=== PATIENT | female | born 1975 | race Hispanic/Latino ===

== ENCOUNTER 2018-02-17 18:45 | Emergency (ER) | payer OTHER ==
[2018-02-17 19:57] LABS: Absolute Lymphocytes (CBC) 2.6 K/uL (0.7-4.9); Absolute Monocytes 0.6 K/uL (0.1-1.3); Absolute Neutrophil 5.5 K/uL (1.8-8.0); Basophils % 0.5 % (0-1.3); Eosinophils % 0.7 % (0-4.4); Hematocrit 40.3 % (36.0-45.0); Lymphocytes % 29.3 % (15.3-44.8); MCH 28.8 pg (27.0-35.0); MCV 84.2 fL (80-100); MPV 8.5 fL (7.6-11.3); RBC Red Blood Cell Count 4.78 M/uL (3.86-4.86)
[2018-02-17 20:05] LABS: Urine Blood NEGATIVE (NEG); Urine Glucose NEGATIVE (NEG); Urine Protein NEGATIVE (NEG); Urine Specific Gravity <1.005 (1.005-1.030)
[2018-02-17 20:12] LABS: Protime INR 0.96
--- NOTE | 2018-02-17 20:16 | RAD REPORT ---
EXAM DESCRIPTION: RAD - Chest Single View - 02/17/2018 8:09 pm CLINICAL HISTORY: Shortness of breath. COMPARISON: None. FINDINGS: Portable technique limits examination quality. The lungs are grossly clear. The heart is normal in size. No displaced fractures. IMPRESSION: No acute intrathoracic process suspected.
[2018-02-17 20:29] LABS: CKMB Creatine Kinase MB 0.8 ng/ml (0.3-4.0); Potassium 3.2 mEq/L (3.6-5.0)
[2018-02-17 20:35] LABS: Albumin 4.2 g/dL (3.2-5.5); Bilirubin Direct 0.1 mg/dL (0-0.2); Bilirubin Total 0.7 mg/dL (0.3-1.2); Magnesium 2.3 mg/dL (1.8-2.5); Protein, Total 7.6 g/dL (6.0-8.3)
--- NOTE | 2018-02-17 22:28 | EDPHYS ---
Physician Documentation [facility] Name: Jody Alarcon Age: 42 yrs Sex: Female : 1975 Arrival Date: 02/17/2018 Time: 18:45 Bed 28 Private MD: ED Physician Bernabe East HPI: 02/17 22:53 This 42 yrs old Female presents to ER via Ambulatory with complaints of pm1 Shortness Of Breath, Numbness Of Arm, Dizziness. 22:53 The patient has shortness of breath at rest. Onset: The symptoms/episode began/occurred pm1 yesterday. Duration: The symptoms are continuous, and are unchanged since they started. The patient's shortness of breath is aggravated by nothing, is alleviated by nothing. Associated signs and symptoms: Pertinent positives: chest pain, Left arm numbness, Pertinent negatives: non-productive cough, productive cough, diaphoresis, fever. Severity of symptoms: in the emergency department the symptoms are worse. The patient has been recently seen by a physician: patient was taken on her antidepressant/anxiety medications about 1 month ago. 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 - Social history:: Smoking status: Patient/guardian denies using tobacco. ROS: 22:53 Constitutional: Negative for fever, chills, and weight loss, Eyes: Negative for injury, pm1 pain, redness, and discharge, ENT: Negative for injury, pain, and discharge, Neck: Negative for injury, pain, and swelling. 22:53 Abdomen/GI: Negative for abdominal pain, nausea, vomiting, diarrhea, and constipation, Back: Negative for injury and pain, : Negative for injury, bleeding, discharge, and swelling, MS/Extremity: Negative for injury and deformity, Skin: Negative for injury, rash, and discoloration. 22:53 Cardiovascular: Positive for chest pain, Negative for edema, orthopnea, palpitations. 22:53 Respiratory: Positive for shortness of breath, Negative for cough, sputum production, wheezing. 22:53 Neuro: Positive for numbness, of the left arm, Negative for dizziness, headache, syncope, near syncope. Exam: 22:53 Constitutional: This is a well developed, well nourished patient who is awake, alert, pm1 and in no acute distress. Head/Face: Normocephalic, atraumatic. Eyes: Pupils equal round and reactive to light, extra-ocular motions intact. Lids and lashes normal. Conjunctiva and sclera are non-icteric and not injected. Cornea within normal limits. Periorbital areas with no swelling, redness, or edema. ENT: Nares patent. No nasal discharge, no septal abnormalities noted. Tympanic membranes are normal and external auditory canals are clear. Oropharynx with no redness, swelling, or masses, exudates, or evidence of obstruction, uvula midline. Mucous membranes moist. Neck: Trachea midline, no thyromegaly or masses palpated, and no cervical lymphadenopathy. Supple, full range of motion without nuchal rigidity, or vertebral point tenderness. No Meningismus. 22:53 Cardiovascular: Regular rate and rhythm with a normal S1 and S2. No gallops, murmurs, or rubs. Normal PMI, no JVD. No pulse deficits. Respiratory: Lungs have equal breath sounds bilaterally, clear to auscultation and percussion. No rales, rhonchi or wheezes noted. No increased work of breathing, no retractions or nasal flaring. Abdomen/GI: Soft, non-tender, with normal bowel sounds. No distension or tympany. No guarding or rebound. No evidence of tenderness throughout. Back: No spinal tenderness. No costovertebral tenderness. Full range of motion. Skin: Warm, dry with normal turgor. Normal color with no rashes, no lesions, and no evidence of cellulitis. MS/ Extremity: Pulses equal, no cyanosis. Neurovascular intact. Full, normal range of motion. Neuro: Awake and alert, GCS 15, oriented to person, place, time, and situation. Cranial nerves II-XII grossly intact. Motor strength 5/5 in all extremities. Sensory grossly intact. Cerebellar exam normal. Normal gait. 22:53 Chest/axilla: Inspection: normal, Palpation: tenderness, of the mid-sternal area, that totally reproduces the patient's complaints. Vital Signs: 18:54 BP 149 / 97; Pulse 102; Resp 22; Temp 98.2(TE); Pulse Ox 100% ; Weight 78.02 kg; Height lk1 5 ft. 4 in. (162.56 cm) (R); Pain 0/10; 19:30 BP 134 / 93; Pulse 118; Resp 18; Pulse Ox 100% on R/A; tl3 20:20 BP 134 / 86; Pulse 90; Resp 18; Pulse Ox 98% on R/A; tl3 21:26 BP 136 / 87; Pulse 96; Resp 16; Pulse Ox 100% on R/A; tl3 22:21 BP 124 / 83; Pulse 73; Resp 18; Pulse Ox 98% on R/A; tl3 18:54 Body Mass Index 29.52 (78.02 kg, 162.56 cm) lk1 MDM: 19:28 Patient medically screened. pm1 22:27 Data reviewed: vital signs. Data interpreted: Pulse oximetry: on room air is 98 %. pm1 Interpretation: normal. Counseling: I had a detailed discussion with the patient and/or guardian regarding: the historical points, exam findings, and any diagnostic results supporting the discharge/admit diagnosis, lab results, radiology results, the need for outpatient follow up, to return to the emergency department if symptoms worsen or persist or if there are any questions or concerns that arise at home. 02/17 18:51 Order name: Basic Metabolic Panel; Complete Time: 21:46 tw4 02/17 18:51 Order name: BNP; Complete Time: 20:25 02/17 18:51 Order name: CBC with Diff; Complete Time: 20:25 4 02/17 18:51 Order name: Ckmb; Complete Time: 21:46 tw4 02/17 18:51 Order name: CPK; Complete Time: 21:46 tw4 02/17 18:51 Order name: LFT's; Complete Time: 21:46 4 02/17 18:51 Order name: Magnesium; Complete Time: 21:46 tw4 02/17 18:51 Order name: PT-INR; Complete Time: 20:25 tw4 02/17 18:51 Order name: Ptt, Activated; Complete Time: 20:25 tw4 02/17 18:51 Order name: Troponin (emerg Dept Use Only); Complete Time: 20:25 tw4 02/17 19:43 Order name: Urine Dipstick--Ancillary (enter results) em1 02/17 19:43 Order name: Urine Dipstick-Ancillary; Complete Time: 20:25 EDMS 02/17 19:52 Order name: D-Dimer pm1 02/17 18:51 Order name: XRAY Chest (1 view); Complete Time: 20:25 tw4 02/17 18:51 Order name: EKG; Complete Time: 18:51 tw4 02/17 18:51 Order name: Cardiac monitoring; Complete Time: 19:46 tw4 02/17 18:51 Order name: EKG - Nurse/Tech; Complete Time: 19:46 tw4 02/17 18:51 Order name: IV Saline Lock; Complete Time: 19:46 tw4 02/17 18:51 Order name: Labs collected and sent; Complete Time: 19:46 tw4 02/17 18:51 Order name: O2 Per Protocol; Complete Time: 19:46 tw4 02/17 18:51 Order name: O2 Sat Monitoring; Complete Time: 19:46 tw4 02/17 18:51 Order name: Urine Dipstick-Ancillary (obtain specimen); Complete Time: 19:42 tw4 02/17 19:58 Order name: D-Dimer; Complete Time: 20:25 EDMS Administered Medications: 22:30 Drug: Potassium Effervescent Tablet 50 mEq Route: PO; tl3 22:52 Follow up: Response: Medication administered at discharge. pm1 Disposition: 02/18 01:27 Co-signature as Attending Physician, Bernabe East MD. [email or web address] Disposition: 02/17/18 22:27 Discharged to Home. Impression: Chest pain, unspecified. - Condition is Stable. - Discharge Instructions: Nonspecific Chest Pain. - Medication Reconciliation Form, Thank You Letter form. - Follow up: Emergency Department; When: As needed; Reason: Worsening of condition. Follow up: Private Physician; When: 2 - 3 days; Reason: Recheck today's complaints, Continuance of care, Re-evaluation by your physician. - Problem is new. - Symptoms have improved. Signatures: Dispatcher [employer] EDMS Bernabe East MD MD pkl Milena Ayers, RN RN lk1 Zane Meyer, STRAP CUTTING MACHINE OPERATOR STRAP CUTTING MACHINE OPERATOR pm1 Percy Klein MD MD tw4 Dana Brenner, RN RN tl3 Corrections: (The following items were deleted from the chart) 02/17 19:57 19:52 D-Dimer ordered. EDMS EDMS
--- NOTE | 2018-02-17 22:28 | ER ---
Nurse's Notes [facility] Name: Jody Alarcon Age: 42 yrs Sex: Female : 1975 Arrival Date: 02/17/2018 Time: 18:45 Bed 28 Private MD: Diagnosis: Chest pain, unspecified Presentation: 02/17 18:51 Presenting complaint: Patient states: "I have not felt good for three days. Today when lk1 I was driving home I felt dizzy and short of breath and my left arm tingled. I think it is just from stress.". Transition of care: patient was not received from another setting of care. Onset of symptoms was February 15, 2018. Care prior to arrival: None. 18:51 Method Of Arrival: Ambulatory lk1 18:51 Acuity: WILBERTO 3 lk1 Triage Assessment: 18:53 General: Appears uncomfortable, Behavior is appropriate for age, anxious. Pain: Denies lk1 pain. Neuro: Level of Consciousness is awake, alert, obeys commands, Oriented to person, place, time, situation, Moves all extremities. Full function Gait is steady, Speech is normal, Facial symmetry appears normal. Neuro: Reports paresthesias in left arm. Cardiovascular: Capillary refill is brisk Patient's skin is warm and dry. Respiratory: Airway is patent Respiratory effort is even, unlabored, Respiratory pattern is symmetrical, tachypnea. 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 - Social history:: Smoking status: Patient/guardian denies using tobacco. Screenin:20 Abuse screen: Denies threats or abuse. Nutritional screening: No deficits noted. tl3 Tuberculosis screening: No symptoms or risk factors identified. Fall Risk None identified. Assessment: 19:30 General: Appears uncomfortable, well groomed, well developed, well nourished, Behavior tl3 is calm, cooperative, appropriate for age. Pain: Complains of pain in left arm Pain does not radiate. Pain began suddenly. Neuro: Level of Consciousness is awake, alert, obeys commands, Oriented to person, place, time, situation, Appropriate for age. Cardiovascular: Heart tones S1 S2 present Capillary refill < 3 seconds in bilateral fingers. Respiratory: Reports shortness of breath at rest Airway is patent Trachea midline Breath sounds are clear bilaterally. GI: No signs and/or symptoms were reported involving the gastrointestinal system. : No signs and/or symptoms were reported regarding the genitourinary system. EENT: No signs and/or symptoms were reported regarding the EENT system. 20:20 Reassessment: Patient appears in no apparent distress at this time. No changes from tl3 previously documented assessment. Patient and/or family updated on plan of care and expected duration. Pain level reassessed. Patient is alert, oriented x 3, equal unlabored respirations, skin warm/dry/pink. at bedside. 21:27 Reassessment: Patient appears in no apparent distress at this time. No changes from tl3 previously documented assessment. Patient and/or family updated on plan of care and expected duration. Pain level reassessed. Patient is alert, oriented x 3, equal unlabored respirations, skin warm/dry/pink. no needs at this time. 22:21 Reassessment: Patient appears in no apparent distress at this time. No changes from tl3 previously documented assessment. Patient and/or family updated on plan of care and expected duration. Pain level reassessed. Patient is alert, oriented x 3, equal unlabored respirations, skin warm/dry/pink. pt waiting for disposition. Vital Signs: 18:54 BP 149 / 97; Pulse 102; Resp 22; Temp 98.2(TE); Pulse Ox 100% ; Weight 78.02 kg; Height lk1 5 ft. 4 in. (162.56 cm) (R); Pain 0/10; 19:30 BP 134 / 93; Pulse 118; Resp 18; Pulse Ox 100% on R/A; tl3 20:20 BP 134 / 86; Pulse 90; Resp 18; Pulse Ox 98% on R/A; tl3 21:26 BP 136 / 87; Pulse 96; Resp 16; Pulse Ox 100% on R/A; tl3 22:21 BP 124 / 83; Pulse 73; Resp 18; Pulse Ox 98% on R/A; tl3 18:54 Body Mass Index 29.52 (78.02 kg, 162.56 cm) lk1 ED Course: 18:45 Patient arrived in ED. as 18:52 Triage completed. lk1 18:55 Arm band placed on right wrist. lk1 19:26 Dana Brenner RN is Primary Nurse. tl3 19:28 Zane Meyer NP is PHCP. pm1 19:28 Bernabe East MD is Attending Physician. pm1 19:45 Initial lab(s) drawn, by me, sent to lab. Inserted saline lock: 20 gauge in left dh3 antecubital area, using aseptic technique. Blood collected. 20:08 X-ray completed. Portable x-ray completed in exam room. Patient tolerated procedure kc2 well. 20:09 XRAY Chest (1 view) In Process Unspecified. EDMS 20:19 D-Dimer Sent. tl3 20:19 Urine Dipstick--Ancillary (enter results) Sent. tl3 20:20 No apparent distress. Resting quietly. Awaiting lab results. tl3 20:20 Patient has correct armband on for positive identification. Placed in gown. Bed in low tl3 position. Call light in reach. Side rails up X 1. Adult w/ patient. radiation monitor on. Pulse ox on. NIBP on. Door closed. Lights dimmed. Warm blanket given. 20:20 No provider procedures requiring assistance completed. Patient maintains SpO2 tl3 saturation greater than 95% on room air. 22:58 IV discontinued, intact, bleeding controlled, No redness/swelling at site. Pressure tl3 dressing applied. Administered Medications: 22:30 Drug: Potassium Effervescent Tablet 50 mEq Route: PO; tl3 22:52 Follow up: Response: Medication administered at discharge. pm1 Outcome: 22:27 Discharge ordered by . pm1 22:55 Patient left the ED. tl3 22:58 Discharged to home ambulatory. tl3 22:58 Condition: good 22:58 Discharge instructions given to patient, Instructed on discharge instructions, follow up and referral plans. Demonstrated understanding of instructions, follow-up care. Signatures: Dispatcher [employer] Mya Sykes Leah, RN RN lk1 Zane Meyer NP LYE PEEL OPERATOR pm1 Joan Iqbal 2 Rosalee Quick [facility] Dana Brenner, DEBBY RN tl3
[2018-02-17] MEDS ORDERED: POTASSIUM 25 MEQ EFFERV TAB ONE (22:47)
--- NOTE | 2018-02-18 06:07 | EKG ---
Test Date: 2018-02-17 Test Time: 18:55:39 Metallurgical Or Materials Technician: [place] MEASUREMENT RESULTS: Intervals: Rate: 94 OR: 122 QRSD: 82 QT: 350 QTc: 437 [place]: P: 80 OR: 122 QRS: 57 T: 27 INTERPRETIVE STATEMENTS: Normal sinus rhythm Normal ECG No previous ECG available for comparison Electronically Signed On 02-18-18 06:06:24 CDT by Kalyan Pierre
== END 2018-02-17 22:55 | disposition home or self-care (01) ==
LOC: ER 18:45
DX: R07.9 Chest pain, unspecified (principal); Z88.8 Allergy status to other drugs, medicaments and biological substances; Z91.040 Latex allergy status
CPT/HCPCS: 36415; 71045; 80048; 80076; 81003; 82550; 82553; 83735; 83880; 84484; 85025; 85379; 85610; 85730; 93005; 99285

== ENCOUNTER 2019-07-19 13:52 | Emergency (ER) | payer BC ==
--- OUTSIDE RECORDS SUMMARY | 2019-07-19 13:55 | XMS REPORT | Continuity of Care Document ---
:1975 Author Organization [facility] Care Team Providers Name Role Phone Tyron Marshall MD Unavailable Unavailable Insurance Providers Payer name Policy type / Coverage type Policy ID Covered constitution party ID Policy Silva [employer] Encounters Encounter Performer Location Date Office Visit Tyron Marshall MD [facility] Sep 28, 2013 Allergies, Adverse Reactions, Alerts Type Substance Reaction Status Environmental allergy LATEX Active Drug allergy IODINE Active Drug allergy BETADINE Active Problems Problem Effective Dates Problem Status LOSS OF WEIGHT May 01, 2012 Active ANXIETY May 01, 2012 Active BACK STRAIN Active HIP PAIN, RIGHT Active LABRAL TEAR, RIGHT HIP Active HIP IMPINGEMENT, RIGHT Active INTERNAL DERANGEMENT, RIGHT HIP Active RT HIP ARTHROSCOPY -SURGICAL WITH LABRAL REPAIR Sep 15, 2013 Active Medications Medication Instructions Start Date Status CELEXA TABS per other M.D. May 01, 2012 Inactive CONZIP 100MG 1 tab po qd May 01, 2012 Inactive LORZONE 375 MG TABS 1 tab po QID May 01, 2012 Inactive MEDROL 4 MG TABS 1 DOSEPAK - take as directed May 01, 2012 Inactive VICODIN 5-500 MG TABS 1 PO q 4-6 hours prn pain May 01, 2012 Inactive PHENTERMINE HCL TABS per other M.D. May 01, 2012 Inactive ADÁN TABS Aug 27, 2013 Active TRAMADOL HCL 50 MG TABS 1-2 TAB Q 6-8 HRS PRN PAIN Sep 18, 2013 Active WHEEL CHAIR With bilateral leg lifts Sep 25, 2013 Active ULTRACET 37.5-325 MG TABS 1 PO q 6-8 hours prn pain Aug 14, 2013 Inactive Vital Signs Date Description Test Result May 01, 2012 weight E&M - 3141-9 WEIGHT 160 lb May 01, 2012 blood pressure, systolic - 8480-6 BP SYSTOLIC 134 mm Hg May 01, 2012 blood pressure, diastolic - 8462-4 BP DIASTOLIC 80 mm Hg May 01, 2012 height E&M - 8302-2 HEIGHT 64 in May 01, 2012 pulse rate E&M - 8867-4 PULSE RATE 102 /min
--- OUTSIDE RECORDS SUMMARY | 2019-07-19 13:55 | XMS REPORT | Continuity of Care Document ---
:1975 Author Organization [facility] Care Team Providers Name Role Phone Tyron Marshall MD Unavailable Unavailable Insurance Providers Payer name Policy type / Coverage type Policy ID Covered alliance party ID Policy Silva [employer] Encounters Encounter Performer Location Date Office Visit Tyron Marshall MD [email or web address] Office Dec 23, 2013 Allergies, Adverse Reactions, Alerts Type Substance [...] Inactive ADÁN TABS Aug 27, 2013 Active ULTRACET 37.5-325 MG TABS 1 PO q 6-8 hours prn pain Aug 14, 2013 Inactive NEUROPATHIC PAIN KETAMINE 10%,NIFEDIPINE Oct 22, 2013 Active 2%,PENTOXIFYLLINE 5%,GABAPENTIN 6%,CLONIDINE 0.2%,CARBAMAZEPINE 2%,BUPIVACAINE 2%. APPLY 2 GRAMS TO THE AFFECTED AREA FOUR TIMES DAILY NEURONTIN 300 MG CAPS 1 PO QHS for 5 days, then BID for 5 Oct 22, 2013 Inactive days, then TID NEURONTIN 100 MG CAPS 1 PO QHS for 5 days, then BID for 5 Oct 22, 2013 Inactive days, then TID WHEEL CHAIR With bilateral leg lifts Sep 25, 2013 Inactive TRAMADOL HCL 50 MG TABS 1-2 TAB Q 6-8 HRS PRN PAIN Sep 18, 2013 Inactive ZORVOLEX 35MG 1 po TID Dec 23, 2013 Active Vital Signs Date Description Test Result May [...]
--- OUTSIDE RECORDS SUMMARY | 2019-07-19 13:55 | XMS REPORT | Continuity of Care Document ---
:1975 Author Organization [id number] Care Team Providers Name Role Phone [employer] Unavailable Unavailable Problems Problem Status Onset Classification Date Comments Source Date Reported S76.011A - Active 09/07/20 OPID "STRAIN OF 15 [facility] MUSCLE, FASCIA AND RIGHT HIP Active 11/18/19 [facility] LABRUM TEAR 15 [place] PAIN Active 11/18/19 SMR 15 [facility] [place] RT HIP Active 09/15/20 Condition 12/23/2013 [place] ARTHROSCOPY 13 [facility] -SURGICAL WITH LABRAL REPAIR Altered bowel Active 09/25/20 Problem 09/18/2015 Data migrated OPID function 12 from [facility] (finding) Centricity on [facility] 04/16/15. [place] Constipation Active 09/25/20 Problem 09/18/2015 Data migrated OPID (disorder) 12 from [facility] on [facility] 04/16/15. [place] Left lower Active 09/25/20 Problem 09/18/2015 Data migrated OPID quadrant pain 12 from [facility] (finding) Centricity on [facility] 04/16/15. [place] Rectal pain Active 09/25/20 Problem 09/18/2015 Data migrated OPID (finding) 12 from [facility] Centricity on [facility] 04/16/15. [place] Right lower Active 09/25/20 Problem 09/18/2015 Data migrated OPID quadrant pain 12 from [facility] (finding) Centricity on [facility] 04/16/15. [place] Cyst of ovary Active 09/10/20 Problem 09/18/2015 Data migrated Surgical (disorder) 12 from [facility] Centricity on [facility] 04/16/15. [place], OPID [facility] [place] Irregular Active 08/19/20 Problem 09/18/2015 Data migrated OPID periods 12 from [facility] (finding) Centricity on [facility] 04/16/15. Natanael Gant Pain in pelvis Active 08/19/20 Problem 09/18/2015 Data migrated OPID (finding) 12 from [facility], Centricity on [facility] 04/16/15. Natanael Gant LOSS OF WEIGHT Active 05/01/20 Condition 12/23/2013 [facility] ANXIETY Active 05/01/20 Condition 12/23/2013 [place] [facility] BACK STRAIN Active Condition 12/23/2013 [facility] HIP PAIN, RIGHT Active Condition 12/23/2013 [facility] LABRAL TEAR, Active Condition 12/23/2013 [place] RIGHT HIP [facility] HIP Active Condition 12/23/2013 [facility] IMPINGEMENT, [facility] RIGHT INTERNAL Active Condition 12/23/2013 [facility] DERANGEMENT, [facility] RIGHT HIP Depressive Problem 03/03/2015 Surgical disorder Specialty (disorder) [facility] Hip pain Problem 03/03/2015 Surgical (finding) Specialty [facility] Medications Medication Details Route Status Patient Ordering Order Source Instructions Provider Date Dilaudid 0.5 mg=0.25 Inactive Vini 03/01/ Surgical mL, GRAB JACK WORKER 2015 Specialty Injection, [facility] IV Push, of [place] q10min PRN [place] for pain severe (7-10), first dose 03/01/15 17:03:00 CDT Demerol HCl 12.5 mg=0.25 Inactive Vini 03/01/ Surgical mL, GRAB JACK WORKER 2015 Specialty Injection, [facility] IV Push, of [place] Once PRN for [place] shivers, first dose 03/01/15 17:03:00 CDT Xopenex 0.63 mg/3 0.63 mg=3 Inactive Vini 03/01/ Surgical mL inhalation mL, Soln, GRAB JACK WORKER 2015 Specialty solution NEB, Once Hospital PRN for of [place] wheezing, [place] first dose 03/01/15 17:03:00 CDT ondansetron 4 mg=2 mL, Inactive Vini 03/01/ Surgical Injection, GRAB JACK WORKER 2015 Specialty IV Push, Hospital q15min PRN [place] for [place] nausea/vomit ing, order duration: 2 doses, first dose 03/01/15 17:03:00 CDT, stop date Limited # of times promethazine 12.5 mg=0.5 Inactive Vini 03/01/ Surgical mL, GRAB JACK WORKER 2015 Specialty Injection, Hospital IM, Once PRN of [place] for severe [place] nausea, first dose 03/01/15 17:03:00 CDT Saline Lock Flush 10 mL, Soln, Inactive Vini 03/01/ Surgical IV Push, As GRAB JACK WORKER 2015 Specialty Indicated Hospital PRN for of [place] flush, first [place] dose 03/01/15 17:03:00 CDT LR 1,000 mL 1,000 mL, Inactive Vini 03/01/ Surgical IV, 75 GRAB JACK WORKER 2015 Specialty mL/hr, start Hospital date of [place] 03/01/15 [place] 17:03:00 CDT Lactated Ringers IV, start Inactive Vini 03/01/ Surgical Injection date GRAB JACK WORKER 2015 Specialty 03/01/15 Hospital 16:53:00 of [place] CDT, stop [place] date 03/01/15 16:53:00 CDT ketorolac 30 mg=1 mL, Inactive Vini 03/01/ Surgical Injection, GR[employer] JACK WORKER 2015 Specialty IV, Once, Hospital first dose of [place] 03/01/15 [place] 16:34:00 CDT, stop date 03/01/15 16:34:00 CDT neostigmine 2.5 mg=2.5 Inactive Vini 03/01/ Surgical mL, GRAB JACK WORKER 2015 Specialty Injection, Hospital IV, Once, of [place] first dose [place] 03/01/15 16:34:00 CDT, stop date 03/01/15 16:34:00 CDT glycopyrrolate 0.4 mg=2 mL, Inactive Vini 03/01/ Surgical Injection, GRAB JACK WORKER 2015 Specialty IV, Once, Hospital first dose of [place] 03/01/15 [place] 16:34:00 CDT, stop date 03/01/15 16:34:00 CDT fentaNYL 50 mcg=1 mL, Inactive Vini 03/01/ Surgical Injection, GR[employer] JACK WORKER 2015 Specialty IV, Once, Hospital first dose of [place] 03/01/15 [place] 15:33:00 CDT, stop date 03/01/15 15:33:00 CDT dexamethasone 4 mg=1 mL, Inactive Vini 03/01/ Surgical Injection, GR[employer] JACK WORKER 2015 Specialty IV, Once, Hospital first dose of [place] 03/01/15 [place] 15:09:00 CDT, stop date 03/01/15 15:09:00 CDT ondansetron 4 mg=2 mL, Inactive Vini 03/01/ Surgical Injection, GR[employer] JACK WORKER 2015 Specialty IV, Once, Hospital first dose of [place] 03/01/15 [place] 15:09:00 CDT, 03/01/15 15:09:00 CDT Misc Medication 1,000 mL, Inactive Jennifer 03/01/ Surgical Soln-IV, IV, 2015 Specialty Once, first Hospital dose of [place] 03/01/15 [place] 15:01:00 CDT, stop 03/01/15 15:01:00 CDT rocuronium 25 mg=2.5 Inactive Vini 03/01/ Surgical mL, GRAB JACK WORKER 2014 Specialty Injection, Hospital IV, Once, of [place] first dose [place] 03/01/15 14:59:00 CDT, stop 03/01/15 14:59:00 CDT fentaNYL 50 mcg=1 mL, Inactive Vini 03/01/ Surgical Injection, GRAB JACK WORKER 2014 Specialty IV, Once, Hospital first dose of [place] 03/01/15 [place] 14:56:00 CDT, 03/01/15 14:56:00 CDT succinylcholine 80 mg=4 mL, Inactive Vini 03/01/ Surgical Injection, GRAB JACK WORKER 2014 Specialty IV, Once, Hospital first dose of [place] 03/01/15 [place] 14:51:00 CDT, 03/01/15 14:51:00 CDT lidocaine 4 mL, Inactive Vini 03/01/ Surgical Injection, GR[employer] JACK WORKER 2014 Specialty IV, Once, Hospital first dose of [place] 03/01/15 [place] 14:49:00 CDT, 03/01/15 14:49:00 CDT propofol 150 mg=15 Inactive Vini 03/01/ Surgical mL, GRAB JACK WORKER 2015 Specialty Emulsion, Hospital IV, Once, of [place] first dose [place] 03/01/15 14:49:00 CDT, 03/01/15 14:49:00 CDT rocuronium 5 mg=0.5 mL, Inactive Vini 03/01/ Surgical Injection, GRAB JACK WORKER 2014 Specialty IV, Once, Hospital first dose of [place] 03/01/15 [place] 14:49:00 CDT, 03/01/15 14:49:00 CDT fentaNYL 100 mcg=2 Inactive Vini 03/01/ Surgical mL, GRAB JACK WORKER 2014 Specialty Injection, Hospital IV, Once, of [place] first dose [place] 03/01/15 14:48:00 CDT, 03/01/15 14:48:00 CDT ceFAZolin 1 gm, Inactive Vini 04/14/ Surgical Soln-IV, IV GRAB JACK WORKER 2014 [facility], [facility] Once, first of [place] dose [place] 03/01/15 14:47:00 CDT, stop date 03/01/15 14:47:00 CDT fentaNYL 50 mcg=1 mL, Inactive Vini 03/01/ Surgical Injection, GRAB JACK WORKER 2014 Specialty IV, Once, Hospital first dose of [place] 03/01/15 [place] 14:38:00 CDT, stop date 03/01/15 14:38:00 CDT midazolam 1 mg=1 mL, Inactive Vini 03/01/ Surgical Injection, GRAB JACK WORKER 2014 Specialty IV, Once, Hospital first dose of [place] 03/01/15 [place] 14:38:00 CDT, stop date 03/01/15 14:38:00 CDT midazolam 1 mg=1 mL, Inactive Jennifer 03/01/ Surgical Injection, 2014 Specialty IV, Once, Hospital first dose of [place] 03/01/15 [place] 14:01:00 CDT, stop date 03/01/15 14:01:00 CDT fentaNYL 50 mcg=1 mL, Inactive Jennifer 03/01/ Surgical Injection, 2014 Specialty IV, Once, Hospital first dose of [place] 03/01/15 [place] 14:01:00 CDT, stop 03/01/15 14:01:00 CDT ceFAZolin 1 gm, Inactive Rolando 03/01/ Surgical Soln-IV, IV 2014 [facility], [facility] Once, infuse of [place] over 30 [place] minutes, first dose 03/01/15 14:00:00 CDT, stop date 03/01/15 14:00:00 CDT metoclopramide 10 mg=2 mL, Inactive Jennifer 03/01/ Surgical Injection, 2014 Specialty IV, Once, Hospital first dose of [place] 03/01/15 [place] 13:58:00 CDT, stop date 03/01/15 13:58:00 CDT famotidine 20 mg, Inactive Jennifer 03/01/ Surgical Injection, 2014 Specialty IV, Once, Hospital first dose of [place] 03/01/15 [place] 13:58:00 CDT, stop date 03/01/15 13:58:00 CDT scopolamine 1 patches, Inactive Jennifer 03/01/ Surgical Film-ER, IV, 2014 Specialty Once, first Hospital dose of [place] 03/01/15 [place] 13:58:00 CDT, stop date 03/01/15 13:58:00 CDT Lidocaine 2% 0.2 0.2 mL, Inactive Ronnie 03/01/ Surgical mL IV Start Injection, 2014 Specialty [[facility]] Subcutaneous Hospital , Once PRN of [place] for other [place] (see comment), first dose 03/01/15 13:13:00 CDT LR 1,000 mL 1,000 mL, Inactive Rolando 03/01/ Surgical IV, 30 2014 Specialty mL/hr, start Hospital date of [place] 03/01/15 [place] 13:13:00 CDT traMADol 100 100 mg=1 Active 02/24/ Surgical mg/24 hours oral tabs, Oral, 2014 Specialty tablet, extended Daily, PRN Hospital release pain, 0 of [place] Refill(s), [place] pain CeleXA 20 mg oral 20 mg=1 Active 02/24/ Surgical tablet tabs, Oral, 2014 Specialty qHS, 0 Hospital Refill(s), of [place] depression [place] ZORVOLEX 35MG 1 po TID Active [facility] 2013 [facility] NEUROPATHIC PAIN KETAMINE Active 10%,NIFEDIPI 2012 Bone & NE Joint 2%,PENTOXIFY LLINE 5%,GABAPENTI N 6%,CLONIDINE 0.2%,CARBAMA ZEPINE 2%,BUPIVACAI NE 2%. APPLY 2 GRAMS TO THE AFFECTED AREA FOUR TIMES DAILY NEURONTIN 300 MG 1 PO QHS for No Longer 10/22/ [facility] CAPS 5 days, then Active 2012 Bone & BID for 5 Joint days, then TID NEURONTIN 100 MG 1 PO QHS for No Longer 10/22/ [facility] CAPS 5 days, then Active 2013 Bone & BID for 5 Joint days, then TID WHEEL CHAIR With No Longer mond bilateral Active 2012 Bone & leg lifts Joint TRAMADOL HCL 50 1-2 TAB Q No Longer 09/18/ [facility] MG TABS 6-8 HRS PRN Active 2012 Bone [facility] PAIN Joint Tylenol Extra mg tabs, No Longer 09/15/ Surgical Strength 500 mg Oral, q6hr, Active 2012 Specialty oral tablet 0 Refill(s) [facility] Patient's Own Med ADÁN, FOR No Longer 09/07/ Surgical OVARIAN Active 2012 Specialty CYST, 0 Hospital Refill(s)FOR of [place] OVARIAN CYST [place] amoxicillin 500 mg, TID, No Longer 10/21/ Surgical FOR A ROOT Active 2012 Specialty CANAL DONE Hospital ON of [facility] 08-31-13., 0 [place] Refill(s)FOR A ROOT CANAL DONE ON 08-31-13. ADÁN TABS Active 08/27/ [place] 2012 [facility] ULTRACET 37.5-325 1 PO q 6-8 No Longer 08/14/ [place] MG TABS hours prn Active 2012 Bone [facility] pain Joint CELEXA TABS per other No Longer 05/01/ [place] M.D. Active 2011 [facility] CONZIP 100MG 1 tab po qd No Longer 05/01/ [place] Active 2011 [facility] LORZONE 375 MG 1 tab po QID No Longer 05/01/ [place] TABS Active 2011 [facility] MEDROL 4 MG TABS 1 DOSEPAK - No Longer [place] take as Active 2011 [facility] directed [facility] VICODIN 5-500 MG 1 PO q 4-6 No Longer 05/01/ [place] TABS hours prn Active 2011 [facility] pain [facility] PHENTERMINE HCL per other No Longer 05/01/ [place] TABS M.D. Active 2011 [facility] Allergies, Adverse Reactions, Alerts Substance Category Reaction Severity Reaction Status Date Comments Source type Reported LATEX Environmenta LATEX [place] l allergy 2 [facility] IODINE Drug allergy IODINE [place] 2 [facility] BETADINE Drug allergy BETADINE [place] 2 [facility] Betadine drug allergy Allergy Surgical [facility] iodine drug allergy Allergy Surgical topical [facility] Latex drug allergy Allergy Surgical [facility] iodine<sup Assertion Drug Active Data MH OPID >1</sup> allergy migrated [place] from [facility] on 03/17/15. Originally documented as IODINE. povidone Assertion Drug Active Data MH OPID iodine allergy migrated [place] topical<new from GE p>2</sup> Centricity on 03/17/15. Originally documented as BETADINE. Immunizations No Data Provided for This Section Results Order Name Results Value Reference Date Interpretation Comments Source Range LABORATORY urine Negative, Control Present 03/01/ Surgical beta hcg (03/01/2015 13:17:00) 2014 [facility] Pathology Reports No Data Provided for This Section Diagnostic Reports Report Value Date Source Hip w contrast MRI MR RIGHT HIP ARTHROGRAM 09/15/2015 [facility] HISTORY: Right hip pain, muscle strain, acetabular labral tear, 40-year-old female reports right hip pain and mechanical symptoms medially for approximately 3 weeks, history of labral repair in 2012 and a February 2015 COMPARISON: MR right hip arthrogram dated 10/28/2014 FINDINGS: Three soft tissue anchors in the acetabulum at 1:00 and 2:00 positions related to prior labral repair. There is abnormal degenerative or postoperative signal both within and undercutting the anterior/superior labrum with irregular labral contour, related to prior surgical repair of labral tear (coronal s eries 10 images 16 and 17 and axis series 8 images 15-17). The small focus of intra-articular contrast undercutting the base of the labrum in this area on the prior exam is no longer seen compatible with interval repair without evidence of recurrent tear. No paralabral cyst. Hip joint cartilage is preserved. No chondromalacia is identified. No subchondral arthropathic marrow edema or cystic change. No soft tissue mass or fluid collection is seen. Bone marrow signal is normal. The gluteus, iliopsoas, hamstring tendons appear normal. IMPRESSION: 1. Mildly degraded postoperative appearance to the anterior superior acetabular labrum with changes of prior labral repair. 2. No recurrent tear is evident. 3. Hip joint cartilage is preserved. Thank you for referring your patient to [facility] and [facility]. SL: 17 Hip arthrogram PROCEDURE: Hip arthrogram Unilateral (Dx) 09/15/2015 [facility] Unilateral DX REASON FOR EXAM: See Clinic Indication CLINICAL INDICATION: fluoro time: 0:27min, S76.011A Strain of muscle, fascia and tendon of right hip, initial encounter, M25.551 Pain in right hip FLUORO TIME: 27 seconds CONSENT: The patient denied any drug allergies. Informed consent was obtained. Technique: The right hip was prepped and draped in a sterile fashion. 5 cc of 1% lidocaine was used to achieve local anesthesia. Under fluoroscopic guidance, a 22-gauge spinal needle was inserted into right hip joint. Approximately 12 cc of a 15 cc solution containing 1 cc of betamethasone (80 mg/cc), 2 cc 1% lidocaine, 4 cc 0.5% bupivacaine, 4 cc of Omnipaque, 4 cc saline , and 0.1 cc Omniscan was administered. The patient tolerated the procedure well without complication. SL: 17 Consultation Notes No Data Provided for This Section Discharge Summaries No Data Provided for This Section History and Physicals No Data Provided for This Section Vital Signs Vital Sign Value Date Comments Source Peripheral Pulse Rate 75 03/01/2015 [facility] Diastolic (mm Hg) 73 03/01/2015 [facility] Systolic (mm Hg) 121 03/01/2015 [facility] Respitory Rate 12 03/01/2015 [facility] Systolic (mm Hg) 121 03/01/2015 [facility] Diastolic (mm Hg) 74 03/01/2015 [facility] Respitory Rate 12 03/01/2015 [facility] Peripheral Pulse Rate 83 03/01/2015 [facility] Diastolic (mm Hg) 73 03/01/2015 [facility] Systolic (mm Hg) 123 03/01/2015 [facility] Respitory Rate 12 03/01/2015 [facility] Peripheral Pulse Rate 75 03/01/2015 [facility] Heart Rate 73 03/01/2015 [facility] Temperature Oral (F) 36.4 Naima 03/01/2015 [facility] Weight 29 03/01/2015 [facility] Weight 76 03/01/2015 [facility] Temperature Oral (F) 36.5 Naima 03/01/2015 [facility] Height 162.56 cm 03/01/2015 [facility] Weight 28.68 02/24/2015 [facility] Weight 76.20 02/24/2015 [facility] Height 163 cm 02/24/2015 [facility] Weight 160 05/01/2012 [facility] Systolic (mm Hg) 134 05/01/2012 [facility] Diastolic (mm Hg) 80 05/01/2012 [facility] Height 64 05/01/2012 [facility] Heart Rate 102 05/01/2012 [facility] Encounters Location Location Encounter Encounter Reason Attending ADM DC Status Source Details Type Number For Provider Date Date Visit [facility] [id number] Tyron 08/27 08/27 [place] Office Visit [id number] Rolando PRAJAPATI /2012 [facility] [id number] Tyron 09/28 09/28 [place] Office Visit [id number] Rolando PRAJAPATI /2012 [facility] [id number] Tyron 12/23 12/23 [place] Office Visit [id number] Rolando PRAJAPATI /2013 [facility] Outpt Diag [id number] Tyron 10/28 10/29 [facility] [place] [facility] Outpatient [id number] Tyron 03/01 03/01 Active Surgical [facility] /2014 [facility] OP Therapy [id number] Tyron 03/03 04/02 [facility] /2014 [facility] OP Therapy [id number] Tyron 04/05 05/05 [facility] [id number] Tyron 09/15 09/16 [facility] Outpatient [facility] Procedures Procedure Code Date Perfomer Comments Source ARTHROSCOPY HIP 03/01/2015 [place] 1auto-populated Surgical SURGICAL W/REMOVAL from documented Specialty OF surgical case Hospital of (Right)<sup>1</sup [place] > right hip 09/15/2013 Surgical arthroscopy, Specialty pincer resection, Hospital of labrum repair & [facility] debridement hernia repair 11/18/2012 [facility] Specialty [facility] Assessment and Plan No Data Provided for This Section Plan of Care No Data Provided for This Section Social History Social History Date Source No data available for this 09/16/2015 OPID [facility] section No data available for this 05/05/2015 [facility] Family History No Data Provided for This Section Advance Directives No Data Provided for This Section Functional Status No Data Provided for This Section
--- OUTSIDE RECORDS SUMMARY | 2019-07-19 13:55 | XMS REPORT | Continuity of Care Document ---
:1975 Author Organization [facility] Care Team Providers Name Role Phone Tyron Marshall MD Unavailable Unavailable Insurance Providers Payer name Policy type / Coverage type Policy ID Covered constitution party ID Policy Silva [employer] Encounters Encounter Performer Location Date Office Visit Tyron Marshall MD [place] [facility] Aug 27, 2013 Allergies, Adverse Reactions, Alerts Type Substance Reaction Status Environmental allergy LATEX Active Drug allergy IODINE Active Drug allergy BETADINE Active Problems Problem Effective Dates Problem Status LOSS OF WEIGHT May 01, 2012 Active ANXIETY May 01, 2012 Active BACK STRAIN Active HIP PAIN, RIGHT Active LABRAL TEAR, RIGHT HIP Active HIP IMPINGEMENT, RIGHT Active INTERNAL DERANGEMENT, RIGHT HIP Active Medications Medication Instructions Start Date Status CELEXA TABS per other M.D. May 01, 2012 Inactive ULTRACET 37.5-325 MG TABS 1 PO q 6-8 hours prn pain Aug 14, 2013 Active CONZIP 100MG 1 tab po qd May [...] Inactive ADÁN TABS Aug 27, 2013 Active Vital Signs Date Description Test [...]
--- OUTSIDE RECORDS SUMMARY | 2019-07-19 13:56 | XMS REPORT | Summary of Care ---
:1975 Author Encounter HQ Pamela(RAKEL) [id number] Date(s): 04/05/15 - 05/04/15 [facility] Discharge Disposition: Home Physician Attending: Tyron Marshall MD Vital Signs No data available for this section Problem List Condition Effective Dates Status Health Status Informant Altered bowel function1 09/25/12 Active Constipation2 09/25/12 Active Cyst of ovary3 09/10/12 Active Irregular periods4 08/19/12 Active Left lower quadrant pain5 09/25/12 Active Pain in pelvis6 08/19/12 Active Rectal pain7 09/25/12 Active Right lower quadrant pain8 09/25/12 Active 1Data migrated from [employer] [facility] on 04/16/15.2Data migrated from [employer] [facility] on 04/16/15.3Data migrated from [employer] [facility] on 04/16/15.4Data migrated from [facility] Centricity on 04/16/15.5Data migrated from [facility] on 04/16/15.6Data migrated from [facility] on 04/16/15.7Data migrated from [facility] on 04/16.8Data migrated from [facility] on 04/16/15. Allergies, Adverse Reactions, Alerts Substance Reaction Severity Status iodine1 Active povidone iodine topical2 Active 1Data migrated from [employer] [facility] on 03/17/15. Originally documented as IODINE.2Data migrated from [facility] on 03/17/15. Originally documented as BETADINE. Medications No data available for this section Results No data available for this section Immunizations No data available for this section Procedures No data available for this section Social History No data available for this section Assessment and Plan No data available for this section
--- OUTSIDE RECORDS SUMMARY | 2019-07-19 13:56 | XMS REPORT | Summary of Care ---
:1975 Author Organization [facility] Outpatient Imaging [facility] Address [address] [place] [id number] Encounter HQ Encntr_alias(FIN) [id number] Date(s): 09/15/15 - 09/15/15 [facility] Outpatient Imaging [address] [phone] Discharge Disposition: Home Attending Physician: Tyron Marshall MD Vital Signs No data [...]
--- OUTSIDE RECORDS SUMMARY | 2019-07-19 13:56 | XMS REPORT ---
:1975 Author Organization [facility] Address [address] [place] [address] Dr. Beatty [address] [place] [id number] Care Team Providers Name Role Phone Mavis Norris Unavailable Unavailable Problems This patient has no known problems. Allergies, Adverse Reactions, Alerts This patient has no known allergies or adverse reactions. Medications This patient has no known medications. Encounters Start End Encounter Admission Attending Care Care Encounter Date/Time Date/Time Type Type Clinicians Facility Department ID 2018-04-25 2018-04-25 Outpatient Mavis Norris [id number] 10:17:00 10:17:00 2018-04-07 2018-04-07 Outpatient Mavis Norris [id number] 13:51:00 13:51:00
--- OUTSIDE RECORDS SUMMARY | 2019-07-19 13:56 | XMS REPORT | CCD ---
:1975 Author Organization [facility] Care Team Providers Name Role Phone Tyron Marshall Consulting Provider [phone] Allergies, Adverse Reactions, Alerts Substance Reaction Status Betadine Rash Active iodine topical Rash Active Latex Rash Active Problem List Condition Effective Dates Status Depression Active Hip pain Active Ovarian cyst Active Medications Medication Instructions Start Date End Date Status CeleXA 20 mg oral tablet 20 mg=1 tabs, Oral, 02/24/2015 03/10/2015 Ordered qHS, 0 Refill(s), depression ketorolac 30 mg=1 mL, Injection, 03/01/2015 03/01/2015 Completed IV, Once, first dose 03/01/15 16:34:00 CDT, stop date 03/01/15 16:34:00 CDT Lactated Ringers Injection IV, start date 03/01/15 03/01/2015 03/01/2015 Completed 16:53:00 CDT, stop date 03/01/15 16:53:00 CDT neostigmine 2.5 mg=2.5 mL, 03/01/2015 03/01/2015 Completed Injection, IV, Once, first dose 03/01/15 16:34:00 CDT, stop date 03/01/15 16:34:00 CDT glycopyrrolate 0.4 mg=2 mL, Injection, 03/01/2015 03/01/2015 Completed IV, Once, first dose 03/01/15 16:34:00 CDT, stop date 03/01/15 16:34:00 CDT dexamethasone 4 mg=1 mL, Injection, 03/01/2015 03/01/2015 Completed IV, Once, first dose 03/01/15 15:09:00 CDT, stop date 03/01/15 15:09:00 CDT Misc Medication 1,000 mL, Soln-IV, IV, 03/01/2015 03/01/2015 Completed Once, first dose 03/01/15 15:01:00 CDT, stop date 03/01/15 15:01:00 CDT fentaNYL 50 mcg=1 mL, Injection, 03/01/2015 03/01/2015 Completed IV, Once, first dose 03/01/15 15:33:00 CDT, stop date 03/01/15 15:33:00 CDT fentaNYL 100 mcg=2 mL, 03/01/2015 03/01/2015 Completed Injection, IV, Once, first dose 03/01/15 14:48:00 CDT, stop date 03/01/15 14:48:00 CDT lidocaine 4 mL, Injection, IV, 03/01/2015 03/01/2015 Completed Once, first dose 03/01/15 14:49:00 CDT, stop date 03/01/15 14:49:00 CDT propofol 150 mg=15 mL, Emulsion, 03/01/2015 03/01/2015 Completed IV, Once, first dose 03/01/15 14:49:00 CDT, stop date 03/01/15 14:49:00 CDT rocuronium 5 mg=0.5 mL, Injection, 03/01/2015 03/01/2015 Completed IV, Once, first dose 03/01/15 14:49:00 CDT, stop date 03/01/15 14:49:00 CDT succinylcholine 80 mg=4 mL, Injection, 03/01/2015 03/01/2015 Completed IV, Once, first dose 03/01/15 14:51:00 CDT, stop date 03/01/15 14:51:00 CDT ondansetron 4 mg=2 mL, Injection, 03/01/2015 03/01/2015 Completed IV, Once, first dose 03/01/15 15:09:00 CDT, stop date 03/01/15 15:09:00 CDT traMADol 100 mg/24 hours 100 mg=1 tabs, Oral, 02/24/2015 03/10/2015 Ordered oral tablet, extended Daily, PRN pain, 0 release Refill(s), pain Dilaudid 0.5 mg=0.25 mL, 03/01/2015 03/01/2015 Discontinued Injection, IV Push, q10min PRN for pain severe (7-10), first dose 03/01/15 17:03:00 CDT Demerol HCl 12.5 mg=0.25 mL, 03/01/2015 03/01/2015 Discontinued Injection, IV Push, Once PRN for shivers, first dose 03/01/15 17:03:00 CDT Xopenex 0.63 mg/3 mL 0.63 mg=3 mL, Soln, 03/01/2015 03/01/2015 Discontinued inhalation solution NEB, Once PRN for wheezing, first dose 03/01/15 17:03:00 CDT ondansetron 4 mg=2 mL, Injection, 03/01/2015 03/01/2015 Discontinued IV Push, q15min PRN for nausea/vomiting, order duration: 2 doses, first dose 03/01/15 17:03:00 CDT, stop date Limited # of times ondansetron 8 mg=1 tabs, Tab-Dis, 03/01/2015 03/01/2015 Discontinued Oral, Once PRN for nausea/vomiting, first dose 03/01/15 17:03:00 CDT promethazine 12.5 mg=0.5 mL, 03/01/2015 03/01/2015 Discontinued Injection, IM, Once PRN for severe nausea, first dose 03/01/15 17:03:00 CDT Saline Lock Flush 10 mL, Soln, IV Push, 03/01/2015 03/01/2015 Discontinued As Indicated PRN for flush, first dose 03/01/15 17:03:00 CDT LR 1,000 mL 1,000 mL, IV, 75 mL/hr, 03/01/2015 03/01/2015 Discontinued start date 03/01/15 17:03:00 CDT midazolam 1 mg=1 mL, Injection, 03/01/2015 03/01/2015 Completed IV, Once, first dose 03/01/15 14:01:00 CDT, stop date 03/01/15 14:01:00 CDT metoclopramide 10 mg=2 mL, Injection, 03/01/2015 03/01/2015 Completed IV, Once, first dose 03/01/15 13:58:00 CDT, stop date 03/01/15 13:58:00 CDT famotidine 20 mg, Injection, IV, 03/01/2015 03/01/2015 Completed Once, first dose 03/01/15 13:58:00 CDT, stop date 03/01/15 13:58:00 CDT scopolamine 1 patches, Film-ER, IV, 03/01/2015 03/01/2015 Completed Once, first dose 03/01/15 13:58:00 CDT, stop date 03/01/15 13:58:00 CDT fentaNYL 50 mcg=1 mL, Injection, 03/01/2015 03/01/2015 Completed IV, Once, first dose 03/01/15 14:01:00 CDT, stop date 03/01/15 14:01:00 CDT rocuronium 25 mg=2.5 mL, 03/01/2015 03/01/2015 Completed Injection, IV, Once, first dose 03/01/15 14:59:00 CDT, stop date 03/01/15 14:59:00 CDT ceFAZolin 1 gm, Soln-IV, IV 03/01/2015 03/01/2015 Completed Piggyback, Once, first dose 03/01/15 14:47:00 CDT, stop date 03/01/15 14:47:00 CDT fentaNYL 50 mcg=1 mL, Injection, 03/01/2015 03/01/2015 Completed IV, Once, first dose 03/01/15 14:56:00 CDT, stop date 03/01/15 14:56:00 CDT fentaNYL 50 mcg=1 mL, Injection, 03/01/2015 03/01/2015 Completed IV, Once, first dose 03/01/15 14:38:00 CDT, stop date 03/01/15 14:38:00 CDT midazolam 1 mg=1 mL, Injection, 03/01/2015 03/01/2015 Completed IV, Once, first dose 03/01/15 14:38:00 CDT, stop date 03/01/15 14:38:00 CDT Patient's Own Med ADÁN, FOR OVARIAN CYST, 0 Refill(s) 09/07/2013 02/24/2015 Discontinued FOR OVARIAN CYST amoxicillin 500 mg, TID, FOR A ROOT CANAL DONE ON 08-31-13., 0 Refill(s) 02/24/2015 Discontinued FOR A ROOT CANAL DONE ON 08-31-13. ceFAZolin 1 gm, Soln-IV, IV 03/01/2015 03/01/2015 Canceled Piggyback, Once, infuse over 30 minutes, first dose 03/01/15 14:00:00 CDT, stop date 03/01/15 14:00:00 CDT Lidocaine 2% 0.2 mL IV 0.2 mL, Injection, 03/01/2015 03/01/2015 Completed Start [[facility]] Subcutaneous, Once PRN for other (see comment), first dose 03/01/15 13:13:00 CDT LR 1,000 mL 1,000 mL, IV, 30 mL/hr, 03/01/2015 03/01/2015 Discontinued start date 03/01/15 13:13:00 CDT Tylenol Extra Strength 500 mg tabs, Oral, q6hr, 0 09/15/2013 02/24/2015 Discontinued mg oral tablet Refill(s) Vital Signs Most recent to oldest 1 2 3 [Reference Range]: Temperature Oral [35.8-37.3 36.5 DegC DegC] (03/01/2015 13:18:00) Temperature Skin [36-37 36.4 DegC DegC] (03/01/2015 16:50:00) Peripheral Pulse Rate 75 bpm 83 bpm 75 bpm [55-105 bpm] (03/01/2015 18:15:00) (03/01/2015 17:50:00) (03/01/2015 17:40: 00) Heart Rate Monitored 73 bpm [60-100 bpm] (03/01/2015 16:50:00) Respiratory Rate [12-20] 12 12 12 (03/01/2015 18:15:00) (03/01/2015 17:50:00) (03/01/2015 17:40:00) SpO2 [90-100 %] 98 % 98 % 96 % (03/01/2015 18:15:00) (03/01/2015 17:50:00) (03/01/2015 17:40:00) Systolic Blood Pressure 121 mmHg 121 mmHg 123 mmHg [110-120 mmHg] *HI* *HI* *HI* (03/01/2015 18:15:00) (03/01/2015 17:50:00) (03/01/2015 17:40:00) Diastolic Blood Pressure 73 mmHg 74 mmHg 73 mmHg [65-85 mmHg] (03/01/2015 18:15:00) (03/01/2015 17:50:00) (03/01/2015 17:40: 00) Mean Arterial Pressure, 89.7 mmHg 89.7 mmHg 92 mmHg Cuff (03/01/2015 17:50:00) (03/01/2015 17:40:00) (03/01/2015 17:30:00) Height 162.56 cm 163 cm (03/01/2015 13:18:00) (02/24/2015 09:51:00) Height/Length Dosing 162.56 cm 163 cm (03/01/2015 13:18:00) (02/24/2015 09:51:00) Height Inches 64 in 64 in (03/01/2015 13:18:00) (02/24/2015 09:51:00) Weight 76 kg 76.20 kg (03/01/2015 13:18:00) (02/24/2015 09:51:00) Weight Dosing 76 kg 76.2 kg (03/01/2015 13:18:00) (02/24/2015 09:51:00) Weight Pounds 167 lb 168 lb (03/01/2015 13:18:00) (02/24/2015 09:51:00) Body Mass Index 29 kg/m2 28.68 kg/m2 (03/01/2015 13:18:00) (02/24/2015 09:51:00) Results LABORATORY Most recent to oldest [Reference Range]: 1 urine beta hcg Negative, Control Present (03/01/2015 13:17:00) Procedures Procedures Date Related Diagnosis ARTHROSCOPY HIP SURGICAL W/REMOVAL OF LO 03/01/2015 15:21:00 (Right)1 hernia repair 2012 right hip arthroscopy, pincer resection, labrum 09/15/2013 00:00:00 repair & debridement 1auto-populated from documented surgical case
--- OUTSIDE RECORDS SUMMARY | 2019-07-19 13:56 | XMS REPORT | Summary of Care ---
:1975 Author Encounter HQ Kristin_randall(RAKEL) [id number] Date(s): 10/28/14 - 10/28/14 [facility] Out[facility] Imaging [address] Discharge Disposition: Home Physician Attending: Tyron Marshall MD Reason for Visit 718.95 - JT DARRYN Villeda Problem List No data available for this section Allergies, Adverse Reactions, Alerts No data available for this section Medications No data available for this section Medications Administered During Your Visit No data available for this section Immunizations No data available for this section
--- OUTSIDE RECORDS SUMMARY | 2019-07-19 13:56 | XMS REPORT | Summary of Care ---
:1975 Author Encounter HQ Encntr_aliesme(RAKEL) [id number] Date(s): 03/03/15 - 04/01/15 [facility] Discharge Disposition: Home Physician Attending: Tyron Marshall MD Vital Signs No data available for this section Problem List No data available for this section Allergies, Adverse Reactions, Alerts Substance Reaction Severity [...]
[2019-07-19] MEDS ORDERED: ACYCLOVIR 400 MG TABLET ONE (15:18)
[2019-07-19] MEDS ORDERED: predniSONE 20 MG TAB ONE (15:19)
[2019-07-19] MEDS ORDERED: FENTANYL CITR 100 MCG/2 ML ONE (15:19)
[2019-07-19] MEDS ORDERED: FAMOTIDINE 20 MG TAB ONE (15:20)
--- NOTE | 2019-07-19 15:43 | EDPHYS ---
[facility] Name: Jody Alarcon Age: 44 yrs Sex: Female : 1975 Arrival Date: 07/19/2019 Time: 13:56 Bed 24 Private MD: ED Physician Jason Nicholson HPI: 07/19 15:05 This 44 yrs old Female presents to ER via Ambulatory with complaints of Ear snw Pain. 15:05 The patient presents with pain, that is acute, tenderness. The complaints affect the snw right ear, right christianity and right temporal area. Onset: The symptoms/episode began/occurred suddenly, 2 day(s) ago, and became persistent. Associated signs and symptoms: The patient has no apparent associated signs or symptoms. Severity of symptoms: At their worst the symptoms were moderate. The patient has experienced similar episodes in the past. The patient has not recently seen a physician. has seen Neurology and been ruled out for trigeminal neuralgia and temporal arteritis. 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 - Social history:: Smoking status: Patient/guardian denies using tobacco. - Ebola Screening: : No symptoms or risks identified at this time. ROS: 15:00 Constitutional: Negative for fever, chills, and weight loss. snw 15:00 Eyes: Negative for injury, pain, redness, and discharge, ENT: Negative for injury and discharge, + right ear pain with tenderness of right scalp Neck: Negative for injury, pain, and swelling, Cardiovascular: Negative for chest pain, palpitations, and edema, Respiratory: Negative for shortness of breath, cough, wheezing, and pleuritic chest pain, Abdomen/GI: Negative for abdominal pain, nausea, vomiting, diarrhea, and constipation, Back: Negative for injury and pain, : Negative for injury, bleeding, discharge, and swelling, MS/Extremity: Negative for injury and deformity, Skin: Negative for injury, rash, and discoloration, Neuro: Negative for headache, weakness, numbness, tingling, and seizure, Psych: Negative for depression, anxiety, suicide ideation, homicidal ideation, and hallucinations. Exam: 15:00 Constitutional: This is a well developed, well nourished patient who is awake, alert, snw and in no acute distress. Eyes: Pupils equal round and reactive to light, extra-ocular motions intact. Lids and lashes normal. Conjunctiva and sclera are non-icteric and not injected. Cornea within normal limits. Periorbital areas with no swelling, redness, or edema. Neck: Trachea midline, no thyromegaly or masses palpated, and no cervical lymphadenopathy. Supple, full range of motion without nuchal rigidity, or vertebral point tenderness. No Meningismus. Chest/axilla: Normal chest wall appearance and motion. Nontender with no deformity. No lesions are appreciated. Cardiovascular: Regular rate and rhythm with a normal S1 and S2. No gallops, murmurs, or rubs. Normal PMI, no JVD. No pulse deficits. Respiratory: Lungs have equal breath sounds bilaterally, clear to auscultation and percussion. No rales, rhonchi or wheezes noted. No increased work of breathing, no retractions or nasal flaring. Abdomen/GI: Soft, non-tender, with normal bowel sounds. No distension or tympany. No guarding or rebound. No evidence of tenderness throughout. Back: No spinal tenderness. No costovertebral tenderness. Full range of motion. Skin: Warm, dry with normal turgor. Normal color with no rashes, no lesions, and no evidence of cellulitis. MS/ Extremity: Pulses equal, no cyanosis. Neurovascular intact. Full, normal range of motion. Neuro: Awake and alert, GCS 15, oriented to person, place, time, and situation. Cranial nerves II-XII grossly intact. Motor strength 5/5 in all extremities. Sensory grossly intact. Cerebellar exam normal. Normal gait. Psych: Awake, alert, with orientation to person, place and time. Behavior, mood, and affect are within normal limits. 15:00 Head/face: Noted is tenderness, that is moderate, of the right frontal area, right temporal area, right ear and right christianity. 15:00 ENT: Ear canal(s): are normal, TM's: are normal, Nose: is normal, Mouth: is normal, Posterior pharynx: is normal, Voice: is normal. Vital Signs: 14:02 BP 129 / 90; Pulse 92; Resp 16; Temp 97.1; Pulse Ox 100% on R/A; Weight 74.84 kg; la1 Height 5 ft. 4 in. (162.56 cm); 15:40 BP 119 / 84; Pulse 89; Resp 17 S; Temp 98.2(O); Pulse Ox 100% on R/A; ca1 14:02 Body Mass Index 28.32 (74.84 kg, 162.56 cm) la1 MDM: 14:23 Patient medically screened. [facility] 15:43 Data reviewed: vital signs, nurses notes. Data interpreted: Pulse oximetry: on room air snw is 100 %. Interpretation: normal. Counseling: I had a detailed discussion with the patient and/or guardian regarding: the historical points, exam findings, and any diagnostic results supporting the discharge/admit diagnosis, the presence of at least one elevated blood pressure reading (>120/80) during this emergency department visit, lab results, the need for outpatient follow up, to return to the emergency department if symptoms worsen or persist or if there are any questions or concerns that arise at home. Special discussion: Based on the history and exam findings, there is no indication for further emergent testing or inpatient evaluation. I discussed with the patient/guardian the need to see the neurologist for further evaluation of the symptoms. I discussed with the patient/guardian the need to see the primary care provider for further evaluation of the symptoms. 07/19 14:37 Order name: Strep; Complete Time: 15:41 snw 07/19 15:30 Order name: Throat Culture EDMS Administered Medications: 15:15 Drug: Acyclovir 800 mg Route: PO; ca1 15:56 Follow up: Response: No adverse reaction ca1 15:20 Drug: fentaNYL (PF) 50 mcg Route: IM; Site: left deltoid; ca1 15:56 Follow up: Response: No adverse reaction; Pain is decreased ca1 15:25 Drug: predniSONE 40 mg Route: PO; ca1 15:56 Follow up: Response: No adverse reaction ca1 15:25 Drug: Pepcid 20 mg Route: PO; ca1 15:56 Follow up: Response: No adverse reaction ca1 Disposition: 07/20 09:23 Co-signature as Attending Physician, Jason Nicholson MD I agree with the assessment and [facility] plan of care. Disposition: 07/19/19 15:42 Discharged to Home. Impression: Otalgia, right ear, Paresthesia of skin. - Condition is Stable. - Discharge Instructions: Hypertension, Earache, Adult, Paresthesia. - Prescriptions for Valtrex 1 g Oral Tablet - take 1 tablet by ORAL route every 8 hours for 7 days; 21 tablet. Prednisone 20 mg Oral Tablet - take 2 tablet by ORAL route once daily for 5 days; 10 tablet. Pepcid 20 mg Oral Tablet - take 1 tablet by ORAL route once daily for 10 days; 10 tablet. - Medication Reconciliation Form, Thank You Letter, Antibiotic Education, Prescription Opioid Use form. - Follow up: Private Physician; When: 2 - 3 days; Reason: Recheck today's complaints, Continuance of care, Re-evaluation by your physician. Follow up: Emergency Department; When: As needed; Reason: Worsening of condition. Signatures: Dispatcher [employer] EDJason Loyola MD MD cha Therrien, Shelly, PROPERTY AND SUPPLY OFFICER-C PROPERTY AND SUPPLY OFFICER-Csnw Jake Christie RN RN la1 Katalina Hunt RN RN ca1 Corrections: (The following items were deleted from the chart) 07/19 16:08 15:42 07/19/2019 15:42 Discharged to Home. Impression: Otalgia, right ear; Paresthesia ca1 of skin. Condition is Stable. Forms are Medication Reconciliation Form, Thank You Letter, Antibiotic Education, Prescription Opioid Use. Follow up: Private Physician; When: 2 - 3 days; Reason: Recheck today's complaints, Continuance of care, Re-evaluation by your physician. Follow up: Emergency Department; When: As needed; Reason: Worsening of condition. snw
--- NOTE | 2019-07-19 15:43 | ER ---
Nurse's Notes [facility] Name: Jody Alarcon Age: 44 yrs Sex: Female : 1975 Arrival Date: 07/19/2019 Time: 13:56 Bed 24 Private MD: Diagnosis: Otalgia, right ear;Paresthesia of skin Presentation: 07/19 14:01 Presenting complaint: Patient states: right ear pain for one day. Transition of care: la1 patient was not received from another setting of care. Onset of symptoms was July 19, 2019. Risk Assessment: Do you want to hurt yourself or someone else? Patient reports no desire to harm self or others. Initial Sepsis Screen: Does the patient meet any 2 criteria? No. Patient's initial sepsis screen is negative. Does the patient have a suspected source of infection? No. Patient's initial sepsis screen is negative. Care prior to arrival: None. 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 - Social history:: Smoking status: Patient/guardian denies using tobacco. - Ebola Screening: : No symptoms or risks identified at this time. Screenin:29 Abuse screen: Denies threats or abuse. Denies injuries from another. Nutritional ca1 screening: No deficits noted. Tuberculosis screening: No symptoms or risk factors identified. Fall Risk None identified. Assessment: 14:29 General: Appears in no apparent distress. comfortable, Behavior is calm, cooperative, ca1 appropriate for age. Pain: Complains of pain in right ear Pain radiates to right muslim and right temporal area and right frontal area Pain currently is 5 out of 10 on a pain scale. Quality of pain is described as shooting, Pain began 2-3 days ago. Is continuous. Neuro: Level of Consciousness is awake, alert, obeys commands, Oriented to person, place, time, situation. Cardiovascular: Heart tones S1 S2 present Capillary refill < 3 seconds Patient's skin is warm and dry. Respiratory: Airway is patent Respiratory effort is even, unlabored, Respiratory pattern is regular, symmetrical, Breath sounds are clear bilaterally. GI:. EENT: Tympanic membrane clear on left ear and right ear Ear canal clear on left ear and right ear. EENT: Throat is clear. Derm: Skin is intact, is healthy with good turgor, Skin is pink, warm \T\ dry. Musculoskeletal: Circulation, motion, and sensation intact. Capillary refill < 3 seconds, Range of motion: intact in all extremities. 15:40 Reassessment: Patient appears in no apparent distress at this time. Patient is alert, ca1 oriented x 3, equal unlabored respirations, skin warm/dry/pink. Pt reported that her is coming to pick her up and drive her home. Vital Signs: 14:02 BP 129 / 90; Pulse 92; Resp 16; Temp 97.1; Pulse Ox 100% on R/A; Weight 74.84 kg; la1 Height 5 ft. 4 in. (162.56 cm); 15:40 BP 119 / 84; Pulse 89; Resp 17 S; Temp 98.2(O); Pulse Ox 100% on R/A; ca1 14:02 Body Mass Index 28.32 (74.84 kg, 162.56 cm) la1 ED Course: 13:56 Patient arrived in ED. mr 14:00 [facility] Paul [facility]C [facility]. snw 14:00 Jason Nicholson MD is Attending Physician. snw 14:01 Triage completed. la1 14:01 Arm band placed on left wrist. la1 14:29 Patient has correct armband on for positive identification. Bed in low position. Call ca1 light in reach. Side rails up X 1. Pulse ox on. NIBP on. 15:06 Katalina Hunt, RN is Primary Nurse. ca1 15:59 No provider procedures requiring assistance completed. Patient did not have IV access ca1 during this emergency room visit. Administered Medications: 15:15 Drug: Acyclovir 800 mg Route: PO; ca1 15:56 Follow up: Response: No adverse reaction ca1 15:20 Drug: fentaNYL (PF) 50 mcg Route: IM; Site: left deltoid; ca1 15:56 Follow up: Response: No adverse reaction; Pain is decreased ca1 15:25 Drug: predniSONE 40 mg Route: PO; ca1 15:56 Follow up: Response: No adverse reaction ca1 15:25 Drug: Pepcid 20 mg Route: PO; ca1 15:56 Follow up: Response: No adverse reaction ca1 Outcome: 15:42 Discharge ordered by MD. de la rosa 16:07 Discharged to home ambulatory. ca1 16:07 Condition: stable 16:07 Discharge instructions given to patient, Instructed on discharge instructions, follow up and referral plans. medication usage, Demonstrated understanding of instructions, follow-up care, medications, Prescriptions given X 3. 16:08 Patient left the ED. ca1 Signatures: Lisbeth Paul, TOOLING INSPECTOR-C TOOLING INSPECTOR-Marciano RiosaCorina mr Shahnaz, Jake, RN RN la1 Katalina Hunt RN RN ca1 Corrections: (The following items were deleted from the chart) 16:08 15:40 Reassessment: Patient appears in no apparent distress at this time. Patient is ca1 alert, oriented x 3, equal unlabored respirations, skin warm/dry/pink. ca1
== END 2019-07-19 16:08 | disposition home or self-care (01) ==
LOC: ER 13:52
DX: H92.01 Otalgia, right ear (principal); R20.2 Paresthesia of skin; Z91.09 Other allergy status, other than to drugs and biological substances
CPT/HCPCS: 87070; 87081; 96372; 99283; J3010; J7512

== ENCOUNTER 2019-07-23 12:35 | Emergency (ER) | payer BC ==
--- OUTSIDE RECORDS SUMMARY | 2019-07-23 12:37 | XMS REPORT | Continuity of Care Document ---
:1975 Author Organization [employer] Care Team Providers Name Role Phone J. Hilburn Unavailable Unavailable Problems Problem Status Onset Classification Date Comments Source Date Reported S76.011A - Active 09/07/20 OPID "STRAIN OF 15 [facility] MUSCLE, FASCIA AND RIGHT HIP Active 11/18/19 [facility] LABRUM TEAR 15 [place] PAIN Active 11/18/19 SMR 15 [facility] [place] RT HIP Active 09/15/20 Condition 12/23/2013 [place] ARTHROSCOPY 13 [facility] -SURGICAL WITH LABRAL REPAIR Altered bowel Active 09/25/20 Problem 09/18/2015 Data migrated OPID function [address] [facility] (finding) [facility] on [facility] 04/16/15. [place] Constipation Active 09/25/20 Problem 09/18/2015 Data migrated OPID (disorder) [address] [facility] on [facility] 04/16/15. [place] Left lower Active 09/25/20 Problem 09/18/2015 Data migrated OPID quadrant pain [address] [facility] (finding) [facility] on [facility] 04/16/15. [place] Rectal pain Active 09/25/20 Problem 09/18/2015 Data migrated OPID (finding) [address] [facility] on [facility] 04/16/15. [place] Right lower Active 09/25/20 Problem 09/18/2015 Data migrated OPID quadrant pain [address] [facility] (finding) [facility] on [facility] 04/16/15. [place] Cyst of ovary Active 09/10/20 Problem 09/18/2015 Data migrated Surgical (disorder) 12 from [facility] on [facility] 04/16/15. [place], OPID [facility] [place] Irregular Active 08/19/20 Problem 09/18/2015 Data migrated OPID periods [address] [facility] (finding) [facility] on [facility] 04/16/15. Natanael Gant Pain in pelvis Active 08/19/20 Problem 09/18/2015 Data migrated OPID (finding) 12 from [facility], [facility] on [facility] 04/16/15. Natanael Gant LOSS OF WEIGHT [...] Depressive Problem 03/03/2015 Surgical disorder Specialty (disorder) [facility] Hip pain Problem 03/03/2015 Surgical (finding) Specialty [facility] Medications Medication Details Route Status Patient Ordering Order Source Instructions Provider Date Dilaudid 0.5 mg=0.25 Inactive Vini 03/01/ Surgical mL, FACILITIES TECHNICIAN 2015 Specialty Injection, [facility] IV Push, of [place] q10min PRN [place] for pain severe (7-10), first dose 03/01/15 17:03:00 CDT Demerol HCl 12.5 mg=0.25 Inactive Vini 03/01/ Surgical mL, FACILITIES TECHNICIAN 2015 Specialty Injection, [facility] IV Push, of [place] Once PRN for [place] shivers, first dose 03/01/15 17:03:00 CDT Xopenex 0.63 mg/3 0.63 mg=3 Inactive Vini 03/01/ Surgical mL inhalation mL, Soln, FACILITIES TECHNICIAN 2015 Specialty solution NEB, Once Hospital PRN for of [place] wheezing, [place] first dose 03/01/15 17:03:00 CDT ondansetron 4 mg=2 mL, Inactive Vini 03/01/ Surgical Injection, FACILITIES TECHNICIAN 2015 Specialty IV Push, Hospital q15min PRN of [place] for [place] nausea/vomit ing, order duration: 2 doses, first dose 03/01/15 17:03:00 CDT, stop date Limited # of times promethazine 12.5 mg=0.5 Inactive Vini 03/01/ Surgical mL, FACILITIES TECHNICIAN 2015 Specialty Injection, Hospital IM, Once PRN of [place] for severe [place] nausea, first dose 03/01/15 17:03:00 CDT Saline Lock Flush 10 mL, Soln, Inactive Vini 03/01/ Surgical IV Push, As FACILITIES TECHNICIAN 2015 Specialty Indicated Hospital PRN for of [place] flush, first [place] dose 03/01/15 17:03:00 CDT LR 1,000 mL 1,000 mL, Inactive Vini 03/01/ Surgical IV, 75 FACILITIES TECHNICIAN 2015 Specialty mL/hr, start Hospital date of Sugar 03/01/15 [place] 17:03:00 CDT Lactated Ringers IV, start Inactive Vini 03/01/ Surgical Injection date FACILITIES TECHNICIAN 2015 Specialty 03/01/15 Hospital 16:53:00 of [place] CDT, stop [place] date 03/01/15 16:53:00 CDT ketorolac 30 mg=1 mL, Inactive Vini 03/01/ Surgical Injection, FACILITIES TECHNICIAN 2015 Specialty IV, Once, Hospital first dose of [place] 03/01/15 [place] 16:34:00 CDT, stop date 03/01/15 16:34:00 CDT neostigmine 2.5 mg=2.5 Inactive Vini 03/01/ Surgical mL, FACILITIES TECHNICIAN 2015 Specialty Injection, Hospital IV, Once, of [place] first dose [place] 03/01/15 16:34:00 CDT, stop date 03/01/15 16:34:00 CDT glycopyrrolate 0.4 mg=2 mL, Inactive Vini 03/01/ Surgical Injection, FACILITIES TECHNICIAN 2015 Specialty IV, Once, Hospital first dose of [place] 03/01/15 [place] 16:34:00 CDT, stop date 03/01/15 16:34:00 CDT fentaNYL 50 mcg=1 mL, Inactive Vini 03/01/ Surgical Injection, FACILITIES TECHNICIAN 2015 Specialty IV, Once, Hospital first dose of [place] 03/01/15 [place] 15:33:00 CDT, stop date 03/01/15 15:33:00 CDT dexamethasone 4 mg=1 mL, Inactive Vini 03/01/ Surgical Injection, FACILITIES TECHNICIAN 2015 Specialty IV, Once, Hospital first dose of [place] 03/01/15 [place] 15:09:00 CDT, stop date 03/01/15 15:09:00 CDT ondansetron 4 mg=2 mL, Inactive Vnii 03/01/ Surgical Injection, FACILITIES TECHNICIAN 2015 Specialty IV, Once, Hospital first dose of [place] 03/01/15 [place] 15:09:00 CDT, 03/01/15 15:09:00 CDT Misc Medication 1,000 mL, Inactive Jennifer 03/01/ Surgical Soln-IV, IV, 2015 Specialty Once, first Hospital dose of [place] 03/01/15 [place] 15:01:00 CDT, stop 03/01/15 15:01:00 CDT rocuronium 25 mg=2.5 Inactive Vini 03/01/ Surgical mL, FACILITIES TECHNICIAN 2014 Specialty Injection, Hospital IV, Once, of [place] first dose [place] 03/01/15 14:59:00 CDT, stop 03/01/15 14:59:00 CDT fentaNYL 50 mcg=1 mL, Inactive Vini 03/01/ Surgical Injection, FACILITIES TECHNICIAN 2014 Specialty IV, Once, Hospital first dose of [place] 03/01/15 [place] 14:56:00 CDT, 03/01/15 14:56:00 CDT succinylcholine 80 mg=4 mL, Inactive Vini 03/01/ Surgical Injection, FACILITIES TECHNICIAN 2014 Specialty IV, Once, Hospital first dose of [place] 03/01/15 [place] 14:51:00 CDT, 03/01/15 14:51:00 CDT lidocaine 4 mL, Inactive Vini 03/01/ Surgical Injection, FACILITIES TECHNICIAN 2014 Specialty IV, Once, Hospital first dose of [place] 03/01/15 [place] 14:49:00 CDT, 03/01/15 14:49:00 CDT propofol 150 mg=15 Inactive Vini 03/01/ Surgical mL, FACILITIES TECHNICIAN 2015 Specialty Emulsion, Hospital IV, Once, of [place] first dose [place] 03/01/15 14:49:00 CDT, 03/01/15 14:49:00 CDT rocuronium 5 mg=0.5 mL, Inactive Vini 03/01/ Surgical Injection, FACILITIES TECHNICIAN 2014 Specialty IV, Once, Hospital first dose of [place] 03/01/15 [place] 14:49:00 CDT, 03/01/15 14:49:00 CDT fentaNYL 100 mcg=2 Inactive Vini 03/01/ Surgical mL, FACILITIES TECHNICIAN 2014 Specialty Injection, Hospital IV, Once, of [place] first dose [place] 03/01/15 14:48:00 CDT, 03/01/15 14:48:00 CDT ceFAZolin 1 gm, Inactive Vini 04/14/ Surgical Soln-IV, IV FACILITIES TECHNICIAN 2014 [facility], [facility] Once, first of [place] dose [place] 03/01/15 14:47:00 CDT, stop date 03/01/15 14:47:00 CDT fentaNYL 50 mcg=1 mL, Inactive Vini 03/01/ Surgical Injection, FACILITIES TECHNICIAN 2014 Specialty IV, Once, Hospital first dose of [place] 03/01/15 [place] 14:38:00 CDT, stop date 03/01/15 14:38:00 CDT midazolam 1 mg=1 mL, Inactive Vini 03/01/ Surgical Injection, FACILITIES TECHNICIAN 2014 Specialty IV, Once, Hospital first dose [...] Inactive Rolando 03/01/ Surgical Soln-IV, IV 2014 [facility], [facility] Once, infuse of Sugar over 30 [...] Surgical mL IV Start Injection, 2014 Specialty [[facility]] Subcutaneous Hospital , Once PRN of Sugar [...] Specialty oral tablet 0 Refill(s) [facility] [place] Patient's Own Med ADÁN, FOR No Longer 09/07/ Surgical OVARIAN Active 2012 Specialty CYST, 0 Hospital Refill(s)FOR of [place] OVARIAN CYST [place] amoxicillin 500 mg, TID, No Longer 10/21/ Surgical FOR A ROOT Active 2012 Specialty CANAL DONE Hospital ON of [facility] 08-31-13., 0 [place] Refill(s)FOR A ROOT [...] PHENTERMINE HCL per other No Longer 05/01/ Duaen TABS M.D. Active 2011 [facility] Allergies, Adverse Reactions, Alerts Substance Category Reaction Severity Reaction Status Date Comments Source type Reported LATEX Environmenta LATEX Duane l allergy 2 [facility] IODINE Drug allergy IODINE [place] [facility] BETADINE Drug allergy BETADINE [place] [facility] Betadine drug allergy Allergy Surgical [facility] iodine drug allergy Allergy Surgical topical [facility] Latex drug allergy Allergy Surgical [facility] iodine<sup Assertion Drug Active Data MH OPID [...] 03/01/ Surgical beta hcg (03/01/2015 13:17:00) 2014 [facility] Pathology Reports No Data Provided for This Section Diagnostic Reports Report Value Date Source Hip w contrast MRI MR RIGHT HIP ARTHROGRAM 09/15/2015 [facility] HISTORY: Right hip pain, muscle strain, acetabular [...] Thank you for referring your patient to [facility]. SL: 17 Hip arthrogram PROCEDURE: Hip arthrogram Unilateral (Dx) 09/15/2015 [facility] Unilateral DX REASON FOR EXAM: See Clinic [...] Rate 75 03/01/2015 [facility] [place] Diastolic (mm Hg) 73 03/01/2015 [facility] [place] Systolic (mm Hg) 121 03/01/2015 [facility] [place] Respitory Rate 12 03/01/2015 [facility] [place] Systolic (mm Hg) 121 03/01/2015 [facility] [place] Diastolic (mm Hg) 74 03/01/2015 [facility] [place] Respitory Rate 12 03/01/2015 [facility] [place] Peripheral Pulse Rate 83 03/01/2015 [facility] [place] Diastolic (mm Hg) 73 03/01/2015 [facility] [place] Systolic (mm Hg) 123 03/01/2015 Surgical Specialty [facility] [place] Respitory Rate 12 03/01/2015 [facility] [place] Peripheral Pulse Rate 75 03/01/2015 [facility] [place] Heart Rate 73 03/01/2015 [facility] [place] Temperature Oral (F) 36.4 Naima 03/01/2015 [facility] [place] Weight 29 03/01/2015 [facility] [place] Weight 76 03/01/2015 [facility] [place] Temperature Oral (F) 36.5 Naima 03/01/2015 [facility] [place] Height 162.56 cm 03/01/2015 [facility] [place] Weight 28.68 02/24/2015 [facility] [place] Weight 76.20 02/24/2015 [facility] [place] Height 163 cm 02/24/2015 [facility] [place] Weight 160 05/01/2012 [facility] Systolic (mm Hg) 134 05/01/2012 [facility] Diastolic (mm Hg) 80 05/01/2012 [facility] Height 64 05/01/2012 [facility] Heart Rate 102 05/01/2012 [facility] Encounters Location Location Encounter Encounter Reason Attending ADM DC Status Source Details Type Number For Provider Date Date Visit [place] [facility] [id number] Tyron 08/27 08/27 [place] Office Visit [id number] Rolando PRAJAPATI /2012 [facility] [place] [facility] [id number] Tyron 09/28 09/28 [place] Office Visit [id number] Rolando PRAJAPATI /2012 [facility] [place] [facility] [id number] Tyron 12/23 12/23 [place] Office Visit [id number] Rolando PRAJAPATI /2013 [facility] Outpt Diag [id number] Tyron 10/28 10/29 [facility] [place] [facility] Outpatient [id number] Ytron 03/01 03/01 Active Surgical [facility] /2014 [facility] OP Therapy [id number] Tyron 03/03 04/02 [facility] /2014 [facility] OP Therapy [id number] Tyron 04/05 05/05 [facility] [id number] Tyron 09/15 09/16 [facility] Procedures Procedure Code Date Perfomer Comments Source ARTHROSCOPY HIP 03/01/2015 [place] 1auto-populated Surgical SURGICAL W/REMOVAL from documented Specialty OF surgical case Hospital of (Right)<sup>1</sup [place] > right hip 09/15/2013 Surgical arthroscopy, Specialty pincer resection, Hospital of labrum repair & [place] debridement hernia repair 11/18/2012 Surgical Specialty [facility] Assessment and Plan No Data Provided for This Section Plan of Care No Data Provided for This Section Social History Social History Date Source No data available for this 09/16/2015 [facility] section No data available for this 05/05/2015 [facility] Family History No Data Provided for This Section Advance Directives No Data Provided for This Section Functional Status No Data Provided for This Section
--- OUTSIDE RECORDS SUMMARY | 2019-07-23 12:37 | XMS REPORT | Continuity of Care Document ---
:1975 Author Organization [facility] Care Team Providers Name Role Phone Tyron Marshall MD Unavailable Unavailable Insurance Providers Payer name Policy type / Coverage type Policy ID Covered alliance party ID Policy Silva Aet[employer] Encounters Encounter Performer Location Date Office Visit Tyron Marshall MD [place] Office Aug 27, 2013 Allergies, Adverse Reactions, [...]
--- OUTSIDE RECORDS SUMMARY | 2019-07-23 12:37 | XMS REPORT | CCD ---
:1975 Author Organization [facility] Care Team Providers Name Role Phone Tyron Marshall Consulting Provider [phone] Allergies, Adverse Reactions, Alerts Substance Reaction Status [...] 0.2 mL, Injection, 03/01/2015 03/01/2015 Completed Start [[facility]] Subcutaneous, Once PRN for other (see [...]
--- OUTSIDE RECORDS SUMMARY | 2019-07-23 12:37 | XMS REPORT ---
:1975 [facility] Address [address] [place] [address] Dr. Beat[address] [place] [id number] Care Team Providers Name Role Phone Mavis Norris Unavailable Unavailable Problems This patient has no known problems. Allergies, Adverse Reactions, Alerts This patient has no known allergies or adverse reactions. Medications This patient has no known medications. Encounters Start End Encounter Admission Attending Care Care Encounter Date/Time Date/Time Type Type Clinicians Facility Department ID 2018-04-25 2018-04-25 Outpatient Mavis Norris [id number] 10:17:00 10:17:00 2018-04-07 2018-04-07 Outpatient Mavis Norris [id number] 13:51:00 13:51:00
--- OUTSIDE RECORDS SUMMARY | 2019-07-23 12:37 | XMS REPORT | Continuity of Care Document ---
:1975 Author Organization [facility] Care Team Providers Name Role Phone Tyron Marshall MD Unavailable Unavailable Insurance Providers Payer name Policy type / Coverage type Policy ID Covered democrat ID Policy Silva [employer]etna Encounters Encounter Performer Location Date Office Visit Tyron Marshall MD [facility] Dec 23, 2013 Allergies, Adverse Reactions, [...]
--- OUTSIDE RECORDS SUMMARY | 2019-07-23 12:37 | XMS REPORT | Continuity of Care Document ---
:1975 Author Organization [facility] Care Team Providers Name Role Phone Tyron Marshall MD Unavailable Unavailable Insurance Providers Payer name Policy type / Coverage type Policy ID Covered republican ID Policy Silva Aetna Encounters Encounter Performer Location Date Office Visit Tyron Marshall MD [employer] [facility] Sep 28, 2013 Allergies, Adverse Reactions, [...]
[2019-07-23 14:06] LABS: Absolute Lymphocytes (CBC) 3.6 K/uL (0.7-4.9); Basophils % 0.2 % (0-1.3); Hematocrit 41.5 % (36.0-45.0); Lymphocytes % 30.4 % (15.3-44.8); MPV 8.6 fL (7.6-11.3); RBC Red Blood Cell Count 4.84 M/uL (3.86-4.86)
[2019-07-23 14:09] LABS: Protime INR 0.96
--- NOTE | 2019-07-23 14:09 | RAD REPORT ---
EXAM DESCRIPTION: Sebastian Yost And Sofía (2 Views)07/23/2019 1:55 pm CLINICAL HISTORY: Shortness of breath COMPARISON: February 2018 FINDINGS: The lungs appear clear of acute infiltrate. The heart is normal size IMPRESSION: No acute abnormalities displayed
[2019-07-23 14:20] LABS: ALT/SGPT 14 U/L (12-78); AST/SGOT 11 U/L (15-37); Albumin 3.9 g/dL (3.4-5.0); Alkaline Phosphatase 128 U/L (45-117); BUN Blood Urea Nitrogen 17 mg/dL (7-18); Bicarbonate 30 mmol/L (21-32); Bilirubin Direct 0.1 mg/dL (0-0.2); Bilirubin Total 0.6 mg/dL (0.2-1.0); Glucose Level 80 mg/dL (74-106); Magnesium 2.5 mg/dL (1.8-2.4); NT PRO-BNP 60 pg/mL (<125); Potassium 3.1 mmol/L (3.5-5.1); Protein, Total 7.9 g/dL (6.4-8.2); Sodium Level 142 mmol/L (136-145); Troponin (Emerg Dept Use Only) < 0.02 ng/mL (0.0-0.045)
--- NOTE | 2019-07-23 15:45 | EDPHYS ---
Physician Documentation [facility] Name: Jody Alarcon Age: 44 yrs Sex: Female : 1975 Arrival Date: 07/23/2019 Time: 12:36 Bed 14 Private MD: ED Physician Yao Felder HPI: 07/23 14:05 This 44 yrs old Female presents to ER via Ambulatory with complaints of pm1 Breathing Difficulty. 14:05 Onset: The symptoms/episode began/occurred 5 day(s) ago. The patient's shortness of pm1 breath is aggravated by nothing, is alleviated by nothing. Associated signs and symptoms: Pertinent positives: non-productive cough, but feels like there is rattling in the chest, Pertinent negatives: dizziness, fever, nausea, vomiting. Severity of symptoms: in the emergency department the symptoms are worse. The patient has not experienced similar symptoms in the past. The patient has been recently seen at the [facility] Emergency Department, for unrelated complaints, Shingles diagnosis. 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 - Social history:: Smoking status: Patient/guardian denies using tobacco, Patient uses alcohol, occasionally. Patient/guardian denies using street drugs. - Ebola Screening: : Patient negative for fever greater than or equal to 101.5 degrees Fahrenheit, and additional compatible Ebola Virus Disease symptoms Patient denies exposure to infectious person Patient denies travel to an Ebola-affected area in the 21 days before illness onset No symptoms or risks identified at this time. ROS: 14:05 Constitutional: Negative for fever, chills, and weight loss, Eyes: Negative for injury, pm1 pain, redness, and discharge, ENT: Negative for injury, pain, and discharge, Neck: Negative for injury, pain, and swelling. 14:05 Abdomen/GI: Negative for abdominal pain, nausea, vomiting, diarrhea, and constipation, Back: Negative for injury and pain, : Negative for injury, bleeding, discharge, and swelling, MS/Extremity: Negative for injury and deformity, Skin: Negative for injury, rash, and discoloration, Neuro: Negative for headache, weakness, numbness, tingling, and seizure. 14:05 Cardiovascular: Positive for chest pain, Negative for edema, palpitations. 14:05 Respiratory: Positive for cough, shortness of breath, Negative for wheezing. Exam: 14:05 Constitutional: This is a well developed, well nourished patient who is awake, alert, pm1 and in no acute distress. Head/Face: Normocephalic, atraumatic. Eyes: Pupils equal round and reactive to light, extra-ocular motions intact. Lids and lashes normal. Conjunctiva and sclera are non-icteric and not injected. Cornea within normal limits. Periorbital areas with no swelling, redness, or edema. ENT: Nares patent. No nasal discharge, no septal abnormalities noted. Tympanic membranes are normal and external auditory canals are clear. Oropharynx with no redness, swelling, or masses, exudates, or evidence of obstruction, uvula midline. Mucous membranes moist. Neck: Trachea midline, no thyromegaly or masses palpated, and no cervical lymphadenopathy. Supple, full range of motion without nuchal rigidity, or vertebral point tenderness. No Meningismus. Chest/axilla: Normal chest wall appearance and motion. Nontender with no deformity. No lesions are appreciated. Cardiovascular: Regular rate and rhythm with a normal S1 and S2. No gallops, murmurs, or rubs. Normal PMI, no JVD. No pulse deficits. Respiratory: Lungs have equal breath sounds bilaterally, clear to auscultation and percussion. No rales, rhonchi or wheezes noted. No increased work of breathing, no retractions or nasal flaring. Abdomen/GI: Soft, non-tender, with normal bowel sounds. No distension or tympany. No guarding or rebound. No evidence of tenderness throughout. Back: No spinal tenderness. No costovertebral tenderness. Full range of motion. Skin: Warm, dry with normal turgor. Normal color with no rashes, no lesions, and no evidence of cellulitis. MS/ Extremity: Pulses equal, no cyanosis. Neurovascular intact. Full, normal range of motion. 14:05 Neuro: Orientation: is normal, Motor: is normal, moves all fours. Vital Signs: 13:05 BP 147 / 89; Pulse 92; Resp 14; Temp 98.8(O); Pulse Ox 99% on R/A; Weight 74.84 kg; ch Height 5 ft. 4 in. (162.56 cm); Pain 0/10; 13:57 BP 132 / 89; Pulse 74; Resp 16 S; Pulse Ox 96% on R/A; jl7 15:09 BP 138 / 91; Pulse 80; Resp 16 S; Pulse Ox 99% on R/A; jl7 13:05 Body Mass Index 28.32 (74.84 kg, 162.56 cm) ch MDM: 13:21 Patient medically screened. pm1 15:42 ED course: Patient currently taking steroid treatment. Will discharge the patient home pm1 with breathing treatment for diagnosis of bronchitis. 15:42 Data reviewed: vital signs. Data interpreted: Pulse oximetry: on room air is 99 %. pm1 Interpretation: normal. Counseling: I had a detailed discussion with the patient and/or guardian regarding: the historical points, exam findings, and any diagnostic results supporting the discharge/admit diagnosis, lab results, radiology results, the need for outpatient follow up, to return to the emergency department if symptoms worsen or persist or if there are any questions or concerns that arise at home. 07/23 13:27 Order name: Basic Metabolic Panel; Complete Time: 14:22 pm07/23 13:27 Order name: CBC with Diff; Complete Time: 14:22 pm07/23 13:27 Order name: LFT's; Complete Time: 14:22 pm07/23 13:27 Order name: Magnesium; Complete Time: 14:22 pm07/23 13:27 Order name: NT PRO-BNP; Complete Time: 14:22 pm07/23 13:27 Order name: PT-INR; Complete Time: 14:22 pm07/23 13:27 Order name: Troponin (emerg Dept Use Only); Complete Time: 14:22 pm07/23 13:27 Order name: D-Dimer; Complete Time: 14:22 pm07/23 13:27 Order name: Chest Pa And Lat (2 Views) XRAY; Complete Time: 14:22 pm07/23 13:27 Order name: Flu; Complete Time: 15:25 pm1 07/23 13:47 Order name: [place] Screen Profile; Complete Time: 15:28 pm07/23 13:27 Order name: EKG; Complete Time: 13:29 pm07/23 13:27 Order name: Cardiac monitoring; Complete Time: 13:52 pm07/23 13:27 Order name: EKG - Nurse/Tech; Complete Time: 13:52 pm07/23 13:27 Order name: IV Saline Lock; Complete Time: 13:52 pm07/23 13:27 Order name: Labs collected and sent; Complete Time: 13:52 pm07/23 13:27 Order name: O2 Per Protocol; Complete Time: 13:52 pm07/23 13:27 Order name: O2 Sat Monitoring; Complete Time: 13:52 pm1 Administered Medications: 15:55 Drug: Albuterol 2.5 mg Route: Inhalation; jl7 15:55 Drug: AtroVENT Aerosol 0.5 mg Route: Inhalation; jl7 Disposition: 16:25 Co-signature as Attending Physician, aYo Felder MD. rn Disposition: 07/23/19 15:43 Discharged to Home. Impression: Bronchitis, not specified as acute or chronic. - Condition is Stable. - Discharge Instructions: Acute Bronchitis, Adult, How to Use an Inhaler. - Prescriptions for Albuterol Sulfate 90 mcg/actuation - inhale 1-2 puff by INHALATION route every 4-6 hours; 1 Inhaler. - Medication Reconciliation Form, Thank You Letter, Antibiotic Education, Prescription Opioid Use form. - Follow up: Emergency Department; When: As needed; Reason: Worsening of condition. Follow up: Private Physician; When: 2 - 3 days; Reason: Recheck today's complaints, Continuance of care, Re-evaluation by your physician. - Problem is new. - Symptoms have improved. Signatures: Dispatcher [employer] EDMS Beverley Ivan, RN Yao Hidalgo ch, MD MD rn Marinas, Patrick, BOBBY DANCE ENTERTAINER pm1 Kory Bullock RN RN jl7 Corrections: (The following items were deleted from the chart) 13:58 13:49 MONO SCREEN PROFILE+[id number] ordered. EDMS EDMS 16:12 15:43 07/23/2019 15:43 Discharged to Home. Impression: Bronchitis, not specified as jl7 acute or chronic. Condition is Stable. Forms are Medication Reconciliation Form, Thank You Letter, Antibiotic Education, Prescription Opioid Use. Follow up: Emergency Department; When: As needed; Reason: Worsening of condition. Follow up: Private Physician; When: 2 - 3 days; Reason: Recheck today's complaints, Continuance of care, Re-evaluation by your physician. Problem is new. Symptoms have improved. pm1
--- NOTE | 2019-07-23 15:45 | ER ---
Nurse's Notes [facility] Name: Jody Alarcon Age: 44 yrs Sex: Female : 1975 Arrival Date: 07/23/2019 Time: 12:36 Bed 14 Private MD: Diagnosis: Bronchitis, not specified as acute or chronic Presentation: 07/23 13:04 Presenting complaint: Patient states: seen sat for shingles and ear pain. since then ch having intermittant sob, feeling dizzy, and losing voice. Transition of care: patient was not received from another setting of care. Onset of symptoms was July 19, 2019. Risk Assessment: Do you want to hurt yourself or someone else? Patient reports no desire to harm self or others. Initial Sepsis Screen: Does the patient meet any 2 criteria? No. Patient's initial sepsis screen is negative. Does the patient have a suspected source of infection? No. Patient's initial sepsis screen is negative. Care prior to arrival: None. 13:04 Method Of Arrival: Ambulatory 13:04 Acuity: WILBERTO 3 ch [employer]: 13:05 LMP N/A - Hysterectomy Historical: - Allergies: 13:05 Betadine; 13:05 Latex, Natural Rubber; - PMHx: 13:05 Depression; shingles; - PSHx: 13:05 Hysterectomy; Cholecystectomy; Hernia repair; r torn labrum; ch - Immunization history:: Adult Immunizations up to date, Flu vaccine is not up to date. - Social history:: Smoking status: Patient/guardian denies using tobacco, Patient uses alcohol, occasionally. Patient/guardian denies using street drugs. - Ebola Screening: : Patient negative for fever greater than or equal to 101.5 degrees Fahrenheit, and additional compatible Ebola Virus Disease symptoms Patient denies exposure to infectious person Patient denies travel to an Ebola-affected area in the 21 days before illness onset No symptoms or risks identified at this time. Screenin:54 Abuse screen: Denies threats or abuse. Denies injuries from another. Nutritional jl7 screening: No deficits noted. Tuberculosis screening: No symptoms or risk factors identified. Fall Risk IV access (20 points). Total Posadas Fall Scale indicates No Risk (0-24 pts). Assessment: 13:40 General: Appears in no apparent distress. uncomfortable, Behavior is calm, cooperative, jl7 appropriate for age. Pain: Denies pain. Neuro: Level of Consciousness is awake, alert, obeys commands, Oriented to person, place, time, situation. Cardiovascular: Heart tones present Patient's skin is warm and dry. Rhythm is regular. Respiratory: Airway is patent Respiratory effort is even, unlabored, shallow, Respiratory pattern is regular, symmetrical, Breath sounds are clear bilaterally. GI: No signs and/or symptoms were reported involving the gastrointestinal system. : No signs and/or symptoms were reported regarding the genitourinary system. EENT: No signs and/or symptoms were reported regarding the EENT system. Derm: Skin is pink, warm \T\ dry. Musculoskeletal: No signs and/or symptoms reported regarding the musculoskeletal system. 15:10 Reassessment: Patient appears in no apparent distress at this time. No changes from jl7 previously documented assessment. Patient and/or family updated on plan of care and expected duration. Pain level reassessed. Patient is alert, oriented x 3, equal unlabored respirations, skin warm/dry/pink. 15:36 Reassessment: BOBBY Degroot at bedside discussing plan of care. jl7 Vital Signs: 13:05 BP 147 / 89; Pulse 92; Resp 14; Temp 98.8(O); Pulse Ox 99% on R/A; Weight 74.84 kg; ch Height 5 ft. 4 in. (162.56 cm); Pain 0/10; 13:57 BP 132 / 89; Pulse 74; Resp 16 S; Pulse Ox 96% on R/A; jl7 15:09 BP 138 / 91; Pulse 80; Resp 16 S; Pulse Ox 99% on R/A; jl7 13:05 Body Mass Index 28.32 (74.84 kg, 162.56 cm) ED Course: 12:36 Patient arrived in ED. rg4 13:05 Triage completed. 13:05 Arm band placed on left wrist. Patient placed in an exam room, on a stretcher. 13:08 Zane Meyer NP is PHCP. pm1 13:08 Yao Felder MD is Attending Physician. pm1 13:33 Kory Bullock RN is Primary Nurse. jl7 13:54 Patient has correct armband on for positive identification. Placed in gown. Bed in low jl7 position. Call light in reach. Side rails up X 1. monitor car operator on. Pulse ox on. NIBP on. Warm blanket given. 13:54 Initial lab(s) drawn, by me, sent to lab. Inserted saline lock: 20 gauge in right jl7 antecubital area, using aseptic technique. Blood collected. 13:56 Chest Pa And Lat (2 Views) XRAY In Process Unspecified. EDMS 16:11 No provider procedures requiring assistance completed. IV discontinued, intact, jl7 bleeding controlled, No redness/swelling at site. Pressure dressing applied. Administered Medications: 15:55 Drug: Albuterol 2.5 mg Route: Inhalation; jl7 15:55 Drug: AtroVENT Aerosol 0.5 mg Route: Inhalation; jl7 Outcome: 15:43 Discharge ordered by . pm1 16:11 Discharged to home ambulatory. jl7 16:11 Condition: stable 16:11 Discharge instructions given to patient, Instructed on discharge instructions, follow up and referral plans. medication usage, Demonstrated understanding of instructions, follow-up care, medications, Prescriptions given X 1. 16:12 Patient left the ED. jl7 Signatures: Dispatcher [employer] EDMS Beverley Ivan, RN RN Zaen Dean NP LEAF STAMPER pm1 Ijeoma Mehta rg4 Kory Bullock RN RN jl7
[2019-07-23] MEDS ORDERED: ALBUTEROL 2.5 MG/3 ML NEB SOL ONE (15:48)
[2019-07-23] MEDS ORDERED: IPRATROPIUM BROM 0.5MG/2.5ML ONE (15:49)
--- NOTE | 2019-07-23 16:55 | EKG ---
Test Date: 2019-07-23 Test Time: 13:27:18 [place] Operator: EDUARD MEASUREMENT RESULTS: Intervals: Rate: 70 NM: 132 QRSD: 82 QT: 372 QTc: 401 [place]: P: 67 NM: 132 QRS: 20 T: 33 INTERPRETIVE STATEMENTS: Normal sinus rhythm Normal ECG Compared to ECG 02/17/2018 18:55:39 No significant changes Electronically Signed On 07-23-19 16:54:23 CDT by Boni Mayfield
== END 2019-07-23 16:12 | disposition home or self-care (01) ==
LOC: ER 12:35
DX: J40 Bronchitis, not specified as acute or chronic (principal); Z88.3 Allergy status to other anti-infective agents; Z91.040 Latex allergy status; Z91.048 Other nonmedicinal substance allergy status
CPT/HCPCS: 36415; 71046; 80048; 80076; 83735; 83880; 84484; 85025; 85379; 85610; 86308; 87804; 93005; 99285

== ENCOUNTER 2023-05-14 14:04 | Emergency (ER) | payer BC ==
--- OUTSIDE RECORDS SUMMARY | 2023-05-14 14:08 | XMS REPORT | Continuity of Care Document ---
:1975 Author Organization [facility] t Address [address] [place] [address] Care Team Providers Name Role Phone NELLI DANG Attending Clinician Unavailable Mavis Norris Attending Clinician Unavailable Tyron Marshall Attending Clinician Payers Payer Name Policy Type Policy Number Effective Date Expiration Date S [facility] - [id number] 2018 00:00:00 OUT OF STATE Problems Condition Condition Condition Status Onset Resolution Last Treating Co mments Source Name Details Category Date Date Treatment Clinician Date S76.011A - S76.011A Diagnosis Active 2014-112015-09-15 Memoria "STRAIN OF - "STRAIN 0-21 09:24:00 l MUSCLE, OF MUSCLE, 00:01: Arleen nn FASCIA AND FASCIA AND 00 Active 09/07/2015 SARAH [facility] PAIN PAIN Diagnosis Active 2015-04-19 Mem oria Active 11-18 11:02:00 l 11/18/2014 08:00: Ramirez velazco [facility] 00 [facility] RIGHT HIP RIGHT HIP Diagnosis Active 2015-04-01 Memoria LABRUM LABRUM 11-18 11:56:00 l TEAR TEAR 08:00: Esa Active 00 11/18/2014 [facility] RT HIP RT HIP Condition Active 2012-112013-12-23 Me moria ARTHROSCOP ARTHROSCOP 0- 13:08:17 l Y Y 00:00: Esa -SURGICAL -SURGICAL 00 WITH WITH LABRAL LABRAL REPAIR REPAIR Active 09/15/2013 Condition 12/23/2013 [facility] Altered Altered Problem Active 2011-112015-09-18 Me moria bowel bowel 1-08 00:51:01 l function function 00:00: Ramirez n (finding) (finding) 00 Active 09/25/2012 Problem 09/18/2015 Data migrated from [employer] on 04/16/15. [facility] Constipati Constipat Problem Active 2011-112015-09-18 Memoria on ion 1-08 00:51:01 l (disorder) (disorder) 00:00: He rmann Active 00 09/25/2012 Problem 09/18/2015 Data migrated from [employer] on 04/16/15. [facility] Left lower Left Problem Active 2011-112015-09-18 M emoria quadrant lower 1-08 00:51:01 l pain quadrant 00:00: [place] (finding) pain 00 (finding) Active 09/25/2012 Problem 09/18/2015 Data migrated from [employer] on 04/16/15. SARAH [facility] Rectal Rectal Problem Active 2011-112015-09-18 Eric vandana pain pain 1-08 00:51:01 l (finding) (finding) 00:00: Herm luan Active 00 09/25/2012 Problem 09/18/2015 Data migrated from [employer] on 04/16/15. [facility] Right Right Problem Active 2011-112015-09-18 Memor ia lower lower 1-08 00:51:01 l quadrant quadrant 00:00: Ramirez n pain pain 00 (finding) (finding) Active 09/25/2012 Problem 09/18/2015 Data migrated from [employer] on 04/16/15. SARAH [facility] Cyst of Cyst of Problem Active 2011-112015-09-18 Me moria ovary ovary 0-24 00:51:01 l (disorder) (disorder) 00:00: He rmann Active 00 09/10/2012 Problem 09/18/2015 Data migrated from [employer] on 04/16/15. [facility] Irregular Irregular Problem Active 2011-112015-09-18 Memoria periods periods 0-02 00:51:01 l (finding) (finding) 00:00: Herm luan Active 00 08/19/2012 Problem 09/18/2015 Data migrated from [employer] on 04/16/15. OPID [facility], [facility] Pain in Pain in Problem Active 2011-112015-09-18 Me moria pelvis pelvis 0-02 00:51:01 l (finding) (finding) 00:00: Herm luan Active 00 08/19/2012 Problem 09/18/2015 Data migrated from [employer] on 04/16/15. OPID [facility], [facility] LOSS OF LOSS OF Condition Active 2013-12-23 Memoria WEIGHT WEIGHT - 13:08:17 l Active 00:00: [place] 05/01/2012 00 Condition 12/23/2013 [facility] ANXIETY ANXIETY Condition Active 2013-12-23 Memoria Active 05-01 13:08:17 l 05/01/2012 00:00: Ramirez n Condition 00 12/23/2013 [facility] Depressive Depressiv Problem 2015-03-03 Memoria disorder e disorder 04:00:54 l (disorder) (disorder) [facility] Problem 03/03/2015 [facility] Hip pain Hip pain Problem 2015-03-03 Memoria (finding) (finding) 04:00:54 l Problem [place] 03/03/2015 [facility] BACK BACK Condition Active 2013-12-23 Mem oria STRAIN STRAIN 13:08:17 l Active Esa Condition 12/23/2013 [facility] HIP PAIN, HIP PAIN, Condition Active 2013-12-23 Memoria RIGHT RIGHT 13:08:17 l Active Esa Condition 12/23/2013 [facility] LABRAL LABRAL Condition Active 2013-12-23 M emoria TEAR, TEAR, 13:08:17 l RIGHT HIP RIGHT HIP Herm luan Active Condition 12/23/2013 [facility] HIP HIP Condition Active 2013-12-23 Mem oria IMPINGEMEN IMPINGEMEN 13:08:17 l T, RIGHT T, RIGHT Ramirez n Active Condition 12/23/2013 [facility] INTERNAL INTERNAL Condition Active 2013-12-23 Memoria DERANGEMEN DERANGEMEN 13:08:17 l T, RIGHT T, RIGHT Ramirez n HIP HIP Active Condition 12/23/2013 [facility] Allergies, Adverse Reactions, Alerts Allergy Allergy Status Severity Reaction(s) Onset Inactive Treating Comm ents Source Name Type Date Date Clinician soap DA Active 2016-11 [facility] 2-15 [place] 00:00: d 00 [facility] povidone DA Active 2016-11 [facility] -iodine 2-15 [place] 00:00: d 00 [facility] latex DA Active 2016-11 [facility] 2-15 [place] 00:00: d 00 [facility] LATEX LATEX Active Memoria 6-14 l 00:00: [place] 00 IODINE IODINE Active Memoria 6-14 l 00:00: Esa 00 BETADINE BETADINE Active Memori a 6-14 l 00:00: Esa 00 Betadine Betadine Active Memori a l Esa iodine iodine Active Memoria topical topical l Esa Latex Latex Active Memoria l Esa iodine<s iodine<s Active Memori a up>1</new up>1</new l p> p> Esa povidone povidone Active Memori a iodine iodine l topical< topical< Ramirez n sup>2</s sup>2</s up> up> NO KNOWN Drug Active [facility] ALLERGIE Class [facility] Medications Ordered Filled Start Stop Current Ordering Indication Dosage Frequency Signature Comments Components Source Medication Medication Date Date Medication? Clinician (SIG) Name Name Dilaudid No Mikael 0.5 mg = Me moria 4-14 Martini 0.25 mL, l 22:03: WATER PUMPER Injection, Esa 00 IV Push, q10min PRN for pain severe (7-10), first dose 03/01/15 17:03:00 CDT Demerol HCl No Mikael 12.5 mg = Memoria 4-14 Martini 0.25 mL, l 22:03: WATER PUMPER Injection, [place] 00 IV Push, Once PRN for shivers, first dose 03/01/15 17:03:00 CDT Xopenex No Mikael 0.63 mg = Me moria 0.63 mg/3 4-14 Martini 3 mL, l mL 22:03: WATER PUMPER Soln, NEB, [place] inhalation 00 Once PRN solution for wheezing, first dose 03/01/15 17:03:00 CDT ondansetron No Mikael 4 mg = 2 Memoria 4-14 Martini mL, l 22:03: WATER PUMPER Injection, [place] IV Push, q15min PRN for nausea/vom iting, order duration: 2 doses, first dose 03/01/15 17:03:00 CDT, stop date Limited # of times promethazin No Mikael 12.5 mg = Memoria e 4-14 Martini 0.5 mL, l 22:03: WATER PUMPER Injection, [place] 00 IM, Once PRN for severe nausea, first dose 03/01/15 17:03:00 CDT Saline Lock No Mikael 10 mL, M emoria Flush 4-14 Martini Soln, IV l 22:03: WATER PUMPER Push, As [place] 00 Indicated PRN for flush, first dose 03/01/15 17:03:00 CDT LR 1,000 mL No Mikael 1,000 mL, Memoria 4-14 Martini IV, 75 l 22:03: WATER PUMPER mL/hr, Esa 00 start date 03/01/15 17:03:00 CDT Lactated No Mikael IV, start M emoria Ringers -14 Martini date l Injection 21:53: WATER PUMPER 03/01/15 Herm luan 00 16:53:00 CDT, stop date 03/01/15 16:53:00 CDT ketorolac No Mikael 30 mg = 1 Memoria 4-14 Martini mL, l 21:34: WATER PUMPER Injection, [place] 00 IV, Once, first dose 03/01/15 16:34:00 CDT, stop date 03/01/15 16:34:00 CDT neostigmine No Mikael 2.5 mg = Memoria 4-14 Martini 2.5 mL, l 21:34: WATER PUMPER Injection, Esa 00 IV, Once, first dose 03/01/15 16:34:00 CDT, stop date 03/01/15 16:34:00 CDT glycopyrrol No Mikael 0.4 mg = 2 Memoria ate 4-14 Martini mL, l 21:34: WATER PUMPER Injection, [place] IV, Once, first dose 03/01/15 16:34:00 CDT, stop date 03/01/15 16:34:00 CDT fentaNYL No Mikael 50 mcg = 1 Memoria 4-14 Martini mL, l 20:33: WATER PUMPER Injection, [place] 00 IV, Once, first dose 03/01/15 15:33:00 CDT, stop date 03/01/15 15:33:00 CDT dexamethaso No Mikael 4 mg = 1 Memoria ne 4-14 Martini mL, l 20:09: WATER PUMPER Injection, Esa 00 IV, Once, first dose 03/01/15 15:09:00 CDT, stop date 03/01/15 15:09:00 CDT ondansetron No Mikael 4 mg = 2 Memoria 4-14 Martini mL, l 20:09: WATER PUMPER Injection, [place] 00 IV, Once, first dose 03/01/15 15:09:00 CDT, stop date 03/01/15 15:09:00 CDT Misc No Sergo Rodriguez 1,000 mL, [place] moria Medication 4-14 Soln-IV, l 20:01: IV, Once, first dose 03/01/15 15:01:00 CDT, stop date 03/01/15 15:01:00 CDT rocuronium No Mikael 25 mg = M emoria 4-14 Martini 2.5 mL, l 19:59: WATER PUMPER Injection, [place] 00 IV, Once, first dose 03/01/15 14:59:00 CDT, stop date 03/01/15 14:59:00 CDT fentaNYL No Mikael 50 mcg = 1 Memoria 4-14 Martini mL, l 19:56: WATER PUMPER Injection, [place] 00 IV, Once, first dose 03/01/15 14:56:00 CDT, stop date 03/01/15 14:56:00 CDT succinylcho No Mikael 80 mg = 4 Memoria line 4-14 Martini mL, l 19:51: WATER PUMPER Injection, [place] 00 IV, Once, first dose 03/01/15 14:51:00 CDT, stop date 03/01/15 14:51:00 CDT lidocaine No Mikael 4 mL, Eric vandana 4-14 Martini Injection, l 19:49: WATER PUMPER IV, Once, [place] 00 first dose 03/01/15 14:49:00 CDT, stop date 03/01/15 14:49:00 CDT propofol No Mikael 150 mg = Me moria 4-14 Martini 15 mL, l 19:49: WATER PUMPER Emulsion, [place] 00 IV, Once, first dose 03/01/15 14:49:00 CDT, stop date 03/01/15 14:49:00 CDT rocuronium No Mikael 5 mg = 0.5 Memoria 4-14 Martini mL, l 19:49: WATER PUMPER Injection, [place] 00 IV, Once, first dose 03/01/15 14:49:00 CDT, stop date 03/01/15 14:49:00 CDT fentaNYL No Mikael 100 mcg = Andreina emoria 4-14 Martini 2 mL, l 19:48: WATER PUMPER Injection, [place] 00 IV, Once, first dose 03/01/15 14:48:00 CDT, stop date 03/01/15 14:48:00 CDT ceFAZolin No Mikael 1 gm, Eric vandana -14 Martini Soln-IV, l 19:47: WATER PUMPER IV [place] 00 Piggyback, Once, first dose 03/01/15 14:47:00 CDT, stop date 03/01/15 14:47:00 CDT fentaNYL No Mikael 50 mcg = 1 Memoria 4-14 Martini mL, l 19:38: WATER PUMPER Injection, [place] 00 IV, Once, first dose 03/01/15 14:38:00 CDT, stop date 03/01/15 14:38:00 CDT midazolam No Mikael 1 mg = 1 M emoria 4-14 Martini mL, l 19:38: WATER PUMPER Injection, Esa 00 IV, Once, first dose 03/01/15 14:38:00 CDT, stop date 03/01/15 14:38:00 CDT midazolam No Sergo Rodriguez 1 mg = 1 Memoria 4-14 mL, l 19:01: Injection, Esa 00 IV, Once, first dose 03/01/15 14:01:00 CDT, stop date 03/01/15 14:01:00 CDT fentaNYL No Sergo Pinsky 50 mcg = 1 Memoria 4-14 mL, l 19:01: Injection, IV, Once, first dose 03/01/15 14:01:00 CDT, stop date 03/01/15 14:01:00 CDT ceFAZolin No Tyron 1 gm, Memor ia 03-01 [place] Soln-IV, l 19:00: IV Piggyback, Once, infuse over 30 minutes, first dose 03/01/15 14:00:00 CDT, stop date 03/01/15 14:00:00 CDT metoclopram No Sergo Pinsky 10 mg = 2 Memoria brendon 4-14 mL, l 18:58: Injection, IV, Once, first dose 03/01/15 13:58:00 CDT, stop date 03/01/15 13:58:00 CDT famotidine No Sergo Pinsky 20 mg, Memoria 03-01 Injection, l 18:58: IV, Once, first dose 03/01/15 13:58:00 CDT, stop date 03/01/15 13:58:00 CDT scopolamine No Sergo Pinsky 1 patches, Memoria 03-01 Film-ER, l 18:58: IV, Once, first dose 03/01/15 13:58:00 CDT, stop date 03/01/15 13:58:00 CDT Lidocaine No Gianni K 0.2 mL, Mem oria 2% 0.2 mL 03-01 [place] Injection, l IV Start 18:13: Subcutaneo Her montero [[facility]] 00 us, Once PRN for other (see comment), first dose 03/01/15 13:13:00 CDT LR 1,000 mL No Tyron 1,000 mL, Memoria 14 [place] IV, 30 l 18:13: mL/hr, start date 03/01/15 13:13:00 CDT traMADol Yes 100 mg = 1 Mem oria 100 mg/24 409 tabs, l hours oral 15:02: Oral, Ramirez n tablet, 00 Daily, PRN extended pain, 0 release Refill(s), pain CeleXA 20 Yes 20 mg = 1 Mem oria mg oral 4-09 tabs, l tablet 14:53: Oral, qHS, Arleen nn 00 0 Refill(s), depression ZORVOLEX Yes 1 po TID Memor ia 35MG 2-05 l 00:00: Esa 00 NEUROPATHIC 2012-11 Yes KETAMINE Me moria PAIN 2-05 10%,NIFEDI l 00:00: PINE [place] 00 2%,PENTOXI FYLLINE 5%,GABAPEN TIN 6%,CLONIDI NE 0.2%,CARBA MAZEPINE 2%,BUPIVAC ANGELA 2%. APPLY 2 GRAMS TO THE AFFECTED AREA FOUR TIMES DAILY NEURONTIN 2012-11 No 1 PO QHS Eric vandana 300 MG CAPS 2-05 for 5 l 00:00: days, then Esa 00 BID for 5 days, then TID NEURONTIN 2012-11 No 1 PO QHS Eric vandana 100 MG CAPS 2-05 for 5 l 00:00: days, then [place] 00 BID for 5 days, then TID WHEEL CHAIR 2012-11 No With Memori a 1-08 bilateral l 00:00: leg lifts [place] 00 TRAMADOL 2012-11 No 1-2 TAB Q Eric vandana HCL 50 MG - 6-8 HRS l TABS 00:00: PRN PAIN 00 Tylenol 2012-11 No mg tabs, Memori a Extra 0-29 Oral, l Strength 15:46: q6hr, 0 Ramirez n 500 mg oral 00 Refill(s) tablet Patient's 2012-11 No ADÁN, FOR Eric vandana Own Med 0-21 OVARIAN l 13:04: CYST, 0 [place] 00 Refill(s)F OR OVARIAN CYST amoxicillin 2012-11 No 500 mg, Mem oria 0-21 TID, FOR A l 13:04: ROOT CANAL [place] 00 DONE ON 08-31-13., 0 Refill(s)F OR A ROOT CANAL DONE ON 08-31-13. ADÁN TABS 2012-11 Yes Memoria 0-10 l 00:00: [place] 00 ULTRACET No 1 PO q 6-8 Mem oria 37.5-325 MG 9-27 hours prn l TABS 00:00: pain [place] 00 CELEXA TABS 2011-0 No per other M emoria 6-14 M.D. l 00:00: [place] CONZIP 2011-0 No 1 tab po Memoria 100MG 6-14 qd l 00:00: [place] LORZONE 375 2011-0 No 1 tab po Me moria MG TABS 6-14 QID l 00:00: Esa MEDROL 4 MG 2011-0 No 1 DOSEPAK M emoria TABS -14 - take as l 00:00: directed [place] VICODIN 0 No 1 PO q 4-6 Eric vandana 5-500 MG 6-14 hours prn l TABS 00:00: pain Esa PHENTERMINE 0 No per other M emoria HCL TABS 6-14 M.D. l 00:00: [place] 00 Vital Signs Vital Name Observation Time Observation Value Comments Source Diastolic (mm Hg) 2015-03-01 23:15:00 Mem orial [place] Systolic (mm Hg) 2015-03-01 23:15:00 Eric rial [place] Respitory Rate 2015-03-01 23:15:00 Memori al Esa Systolic (mm Hg) 2015-03-01 22:50:00 Eric rial Esa Diastolic (mm Hg) 2015-03-01 22:50:00 Mem orial Esa Respitory Rate 2015-03-01 22:50:00 Memori al Esa Respitory Rate 2015-03-01 22:40:00 Memori al [place] Diastolic (mm Hg) 2015-03-01 22:40:00 Mem orial Esa Systolic (mm Hg) 2015-03-01 22:40:00 Eric rial Esa Heart Rate 2015-03-01 21:50:00 [facility] [place] Temperature Oral (F) 2015-03-01 21:50:00 36.4 [facility] Esa Weight 2015-03-01 18:18:00 [facility] Esa Temperature Oral (F) 2015-03-01 18:18:00 36.5 [facility] [place] Height 2015-03-01 18:18:00 162.56 cm [facility] Esa Weight 2015-02-24 14:51:00 [facility] Esa Height 2015-02-24 14:51:00 163 cm Zaida See Weight 2012-05-01 19:06:29 Zaida See Systolic (mm Hg) 2012-05-01 19:06:29 Eric See Diastolic (mm Hg) 2012-05-01 19:06:29 Mary orijeri See Height 2012-05-01 19:06:29 Zaida See Heart Rate 2012-05-01 19:06:29 Zaida See Procedures Procedure Date / Time Performed Performing Clinician [facility] e ARTHROSCOPY HIP SURGICAL 2015-03-01 20:21:00 Tyron Marshall Mem orial Esa W/REMOVAL OF LO (Right)<sup>1</sup> right hip arthroscopy, 2013-09-15 05:00:00 Marynora ianoah See pincer resection, labrum repair & debridement hernia repair 2012-11-18 00:00:00 Zaida montero Encounters Start End Encounter Admission Attending Care Care Encounter Source Date/Time Date/Time Type Type Clinicians Facility Department ID 2020-08-31 2020-08-31 [id number] 16:00:00 16:00:00 [facility] 2018-04-25 2018-04-25 Outpatient NorrisMavis [facility]OBGYN [id number] 10:17:00 10:17:00 st O[facility] 2018-04-07 2018-04-07 Outpatient NorrisMavis garcia [facility]KH SWOBGYN [id number] 13:51:00 13:51:00 OBGY 2015-09-15 2015-09-16 Outpt Diag nullFlavo [facility] [id number] Memoria 14:15:00 04:59:00 Services r Outpatient 02 l Imaging Esa [facility] 2015-09-15 2015-09-15 Outpatient Rolando 2.16.840. 2.16.840.1. 3 [id number] 09:15:00 23:59:00 Tyron [id number] Mikael [id number] 5.36 2015-04-05 2015-05-05 OP Therapy nullFlavo [facility] [id number] Memoria 15:55:00 04:59:00 Patients r [place] 04 l [facility] 2015-04-05 2015-05-04 Outpatient [place], 2.16.840. 2.16.840.1. 3 [id number] 10:55:00 23:59:00 Tyron [id number] Mikael 3.615.0.1 [id number] 93 2065-04-16 2015-04-02 OP Therapy nullFlavo [facility] [id number] Memoria 15:14:00 04:59:00 Patients r [place] 03 l [facility] 2015-03-03 2015-04-01 Outpatient [place], 2.16.840. 2.16.840.1. 3 [id number] 10:14:00 23:59:00 Tyron [id number] 03 Mikael 3.615.0.1 5.0.525 24 4524-04-14 2015-03-01 Outpatient 2.16.840. 2.16.840.1. 1 [id number] Memoria 12:57:47 18:20:00 [id number] 81.2000 Ramirez n [facility] 2015-03-01 2015-03-01 Outpatient nullFlavo [facility] [id number] Memoria 12:57:47 18:20:00 r noah Esa 2014-10-28 2014-10-29 Outpt Diag nullFlavo [facility] [id number] Memoria 18:58:00 05:59:00 Services r Outpatient 01 l [place] [place] 2014-10-28 2014-10-28 Outpatient [place], 2.16.840. 2.16.840.1. 3 [id number] 12:58:00 23:59:00 Tyron [id number] Mikael 3.615.0.1 [id number] 71 1854-02-05 2013-12-23 Office nullFlavo [facility] [id number] Memoria 00:00:00 00:00:00 Visit r Office [id number] noah See 2013-09-28 2013-09-28 Office nullFlavo [facility] [id number] Memoria 00:00:00 00:00:00 Visit r Office [id number] noah See 2013-08-27 2013-08-27 Office [facility] [id number] Yash 00:00:00 00:00:00 Visit r Office [id number] noah See Results Test Description Test Time Test Comments Results Result [facility] e Comments - MRI BRAIN W/O 2019-07-28 FAX: Miguel Angel De La Cruz CONTRAST 14:27:00 Camps: PM St: [facility]: [facility] 1975 Age/S: 44/F [address] [place] Unit #: [id number] Loc: L.[address] [address] Phys: Miguel Angel Galaviz MD Acct: [id number] Dis Date: Status: ADM IN PHONE #: [phone] Exam Date: 07/28/2019 1343 FAX #: Reason: PERSISTANCE DIZINESS EXAMS: CPT: [id number] MRI BRAIN W/O CONTRAST 14244 Dictation location: U19. MRI BRAIN WITHOUT CONTRAST HISTORY: Persistent dizziness TECHNIQUE: Multiplanar and multiple pulse sequences were obtained throughout the brain without contrast. COMPARISON: None FINDINGS: Diffusion weighted imaging shows no evidence of acute ischemia. The pituitary and posterior fossa are unremarkable. No abnormal T2 or FLAIR signal hyperintensities in noted within the periventricular and deep white matter. No hemorrhage, mass, mass effect, hydrocephalus, midline shift or extra-axial fluid collection. Cerebellopontine angles are grossly unremarkable. The paranasal sinuses and mastoid air cells are clear. IMPRESSION: No evidence of acute ischemia. Unremarkable unenhanced MRI brain. at 0787 Reported and signed by: Guido Ham M.D. CC: Miguel Angel Galaviz MD Technologist: NatRT Alin(R)(MR) Transcribed Date/Time/By: 07/28/2019 ([id number]) :[email or web address] Orig Print D/T: S: 07/28/2019 ([id number]) PAGE 1 Signed Report COMPREHENSIVE METABOLIC PANEL 2019-07-28 04:23:00 Test Item Value Reference Range Interpretation Comme nts SODIUM (test code = NA) 142 mmol/L 134-147 N POTASSIUM (test code = K) 4.0 mmol/L 3.4-5.0 N CHLORIDE (test code = CL) 108 mmol/L 100-108 N CARBON DIOXIDE (test code = CO2) 27 mmol/L 21-32 N ANION GAP (test code = GAP) 7.0 GAP calc 4.0-15.0 N GLUCOSE (test code = GLU) 91 MG/DL 70-110 N BLOOD UREA NITROGEN (test code = BUN) 13 MG/DL 7-18 N GLOMERULAR FILTRATION RATE (test code = GFR) >=60 max estimate estG FR >60 CREATININE (test code = CREAT) 0.7 MG/DL 0.6-1.0 N TOTAL PROTEIN (test code = PROT) 6.0 G/DL 6.4-8.2 L ALBUMIN (test code = ALB) 2.9 G/DL 3.4-5.0 L GLOBULIN (test code = GLOB) 3.1 GM/dL ALBUMIN/GLOBULIN RATIO (test code = A/G) 0.9 RATIO 1.2-2.2 L CALCIUM (test code = CA) 8.2 MG/DL 8.5-10.1 L BILIRUBIN TOTAL (test code = BILT) 0.70 MG/DL 0.2-1.2 N SGOT/AST (test code = AST) 10 Unit/L 15-37 L SGPT/ALT (test code = ALT) 10 Unit/L 12-78 L ALKALINE PHOSPHATASE TOTAL (test code = ALKP) 107 Unit/L 45-117 N LIPID PROFILE (CORONARY RISK)2019-07-28 04:23:00 Test Item Value Reference Range Interpretation Comments TRIGLYCERIDES (test code = TRIG) 168 MG/DL 0-150 H CHOLESTEROL (test code = CHOL) 166 MG/DL 133-200 N CHOLESTEROL/HDL RATIO (test code = 3.46 RATIO >0 CHOLHDL) HDL CHOLESTEROL (test code = HDL) 48 MG/DL 40-59 N NON-HDL CHOLESTEROL (test code = 118 mg/dL <130 NHDL) LIPOPROTEIN LDL (test code = LDL) 105 MG/DL 0-129 N LDL/HDL (test code = LDL/HDL) 2.18 Ratio 1.48-3.22 Avg N T4 [id number] 04:23:00 Test Item Value Reference Range Interpretation Comments T4 FREE (test code = T4F) 1.13 NG/DL 0.89-1.76 N THYROID STIMULATING [id number] 04:23:00 Test Item Value Reference Range Interpretation Comments THYROID STIMULATING HORMONE 0.763 mcIU/ML 0.340-4.820 N (test code = TSH) CBC W/AUTO [id number] 04:04:00 Test Item Value Reference Range Interpretation Comments WHITE BLOOD CELL (test code = 10.0 K/mm3 3.5-11.0 N WBC) RED BLOOD CELL (test code = RBC) 4.43 M/mm3 4.70-6.10 L HEMOGLOBIN (test code = HGB) 12.9 G/DL 10.4-14.9 N HEMATOCRIT (test code = HCT) 38.8 % 31.5-44.1 N MEAN CELL VOLUME (test code = 87.6 Fl 84.5-98.6 N MCV) MEAN CELL HGB (test code = MCH) 29.1 pg 27.0-34.2 N MEAN CELL HGB CONCETRATION (test 33.2 G/DL 31.5-34.0 N code = MCHC) RED CELL DISTRIBUTION WIDTH (test 14.5 SD 11.5-14.5 N code = RDW) PLATELET COUNT (test code = PLT) 289.0 K/mm3 150-450 N MEAN PLATELET VOLUME (test code = 9.90 fL 7.0-10.5 N MPV) NEUTROPHIL % (test code = NT%) 56.4 % 40-76 N LYMPHOCYTE % (test code = LY%) 33.9 % 20.5-51.1 N MONOCYTE % (test code = MO%) 7.8 % 1.7-9.3 N EOSINOPHIL % (test code = EO%) 1.6 % 0.0-6.0 N BASOPHIL % (test code = BA%) 0.3 % 0.0-2.0 N NEUTROPHIL # (test code = NT#) 5.62 K/mm3 1.8-7.6 N LYMPHOCYTE # (test code = LY#) 3.4 K/mm3 0.6-3.2 H MONOCYTE # (test code = MO#) 0.8 K/mm3 0.3-1.1 N EOSINOPHIL # (test code = EO#) 0.2 K/mm3 0.0-0.4 N BASOPHIL # (test code = BA#) 0.0 K/mm3 0.0-0.1 N MANUAL DIFF REQUIRED (test code = NO DIFF/SCN CRITERIA MDIFF) PROTHROMBIN [id number] 04:03:00 Test Item Value Reference Range Interpretation Comments PT PATIENT (test code = PTP) 11.4 SECONDS 9.3-12.9 N INTERNATIONAL NORMAL RATIO 0.99 INR Unit 0.8-1.2 N (test code = INR) [id number] 18:17:00 Test Item Value Reference Range Interpretation Comments urine beta hcg (test Negative, Control code = urine beta hcg) Present (03/01/2015 13:17:00) Zaida See Notes Date/Time Note Provider Source 2019-07-29 14:39:00-00:00 [facility] ([facility]) Hospitalist Discharge Summary REPORT#:[id number] REPORT STATUS: Signed DATE:07/29/19 TIME:1439 PATIENT: MICHAEL CARVALHO UNIT #: [id number] ROOM/BED: [place] [id number] : 75 AGE: 44 SEX: F ATTEND: Milana Galaviz MD ADM AUTHOR: Kirill Jarvis MD * ALL edits or amendments must be made on the el ectronic/computer document * PCP PCP PCP: PCP: No Primary or Family Physician Discharge to: home General Information Date of admission: Observation Start Date: 07/27/19 Date of admission: 07/27/19 Discharge date: 07/29/19 Discharge diagnosis: see hosp course Hospital course: HOSP COURSE Free Text DxA P Notes: This is a 44 years old female with past medical history of depression presents with persistence dizziness for the last 1 week p atient reported also some numbness on her right side of the face and also some pain in her right ear. Assessment presyncope with standing- now resolved with IVF: dehydration related? History of depression under control now Plan MRI brain neg Meclizine 25 mg 3 times daily- prn on dc dcd Debrox Eardrops as not i ndicated: ears examines, and she has some fluid in R ear, suspicios for serous otitus media and I hav e started decongestants on discharge OTC with Claritin- D IV fluid dcd Orthostatic vitals neg neuro consult dcd as improved dc home stable dc time 35 mins Pt. condition on discharge: improved, stable Med Rec Med Rec Discharge meds: Start taking the following new medications: MECLIZINE (ANTIVERT) 25 MG TAB 25 MILLIGRAM ORAL TWICE DAILY NEEDED. as ne eded for dizziness Qty = 10 No Refills Discharge Instructions Activity: as tolerated Additional instructions: fup with ENT 1 week Prescriptions: on chart Discharge management: greater than 30 mins Objective Physical Exam Respiratory: aerating well, clear to auscultatio n, symmetric expansion Abdomen: non-tender, normal bowel sounds, soft, no distention Extremities: no calf tenderness, no clubbing, no cyanosis, no edema Neuro/HOT STRIP FINISHER: alert, oriented X 3, normal speech, n o motor deficits Psychiatry: normal affect Electronically Signed by Kirill Jarvis MD on 07/19 12/06 at 1442 RPT #: [id number] END OF REPORT 2019-07-28 13:37:00-00:00 [facility] ([facility]) Hospitalist Progress Note REPORT#:[id number] REPORT STATUS: Signed DATE:07/28/19 TIME:1337 PATIENT: MICHAEL CARVALHO UNIT #: [id number] ROOM/BED: [place] [id number] : 75 AGE: 44 SEX: F ATTEND: Milana Galaviz MD ADM AUTHOR: Kirill Jarvis MD * ALL edits or amendments must be made on the el [employer]/computer document * Subjective Chief Complaint: right ear pain numbness R side of face feels like passing out after she stands up for few minutes and has some ringing sensation in ears Review of Systems Cardiovascular: Denies: chest pain. GI: Denies: nausea, vomiting. Objective General VS/I O: Vital Signs: Date Time Temp Pulse Resp B/P B/P Pulse O2 O2 F low FiO2 Mean Ox Delivery Rate 07/28 1117 36.8 90 16 135/91 105.6 98 Room air 07/28 0736 36.7 79 16 127/85 99.0 98 Room air 07/28 0425 36.6 72 18 122/85 97.1 99 07/28 0037 36.7 97 16 117/76 89.8 96 Room air 07/27 1945 108 18 129/91 104.0 07/27 1943 98 18 154/86 108.5 95 Room air 07/27 1941 37.0 98 18 126/87 100.3 95 Room air 07/27 1809 36.7 89 18 130/88 102 99 Room air 24 hour I O ending at 0700: 07/28 0700 07/27 1900 Intake Total 900.00 75.00 Output Total Balance 900.00 75.00 Intake, IV 900.00 75.00 Number Voids 1 Patient 74.09 kg Weight Weight Bed scale Measurement Method Patient Weight Weight (lb): 163 Weight (oz): 5.45 Weight (kg): 74.090 Physical Exam General appearance: alert, awake Head/Eyes: atraumatic, clear cornea, EOMI, carson l conjunctiva/sclera, normal eyelids/periorb., normocephalic, PERRL Cardiovascular: normal heart sounds, regular rat e rhythm, no ecotopy Respiratory: aerating well, clear to auscultatio n, symmetric expansion Abdomen: non-tender, normal bowel sounds, soft, no distention Extremities: no calf tenderness, no clubbing, no cyanosis, no edema Neuro/HOT STRIP FINISHER: alert, oriented X 3, normal speech, n o motor deficits Psychiatry: normal affect Results Findings/Data: Laboratory Tests 07/28 0325 Chemistry Sodium (134 - 147 mmol/L) 142 Potassium (3.4 - 5.0 mmol/L) 4.0 Chloride (100 - 108 mmol/L) 108 Carbon Dioxide (21 - 32 mmol/L) 27 Anion Gap (4.0 - 15.0 GAP calc) 7.0 BUN (7 - 18 MG/DL) 13 Creatinine (0.6 - 1.0 MG/DL) 0.7 Glomerular Filtr Rate (>60 estGFR) >=60 max es timate Glucose (70 - 110 MG/DL) 91 Calcium (8.5 - 10.1 MG/DL) 8.2 L Total Bilirubin (0.2 - 1.2 MG/DL) 0.70 AST (15 - 37 Unit/L) 10 L ALT (12 - 78 Unit/L) 10 L Total Alk Phosphatase (45 - 117 Unit/L) 107 Total Protein (6.4 - 8.2 G/DL) 6.0 L Albumin (3.4 - 5.0 G/DL) 2.9 L Globulin (GM/dL) 3.1 Albumin/Globulin Ratio (1.2 - 2.2 RATIO) 0.9 L Triglycerides (0 - 150 MG/DL) 168 H Cholesterol (133 - 200 MG/DL) 166 LDL Cholesterol Measurd (0 - 129 MG/DL) 105 Non-HDL Cholesterol (<130 mg/dL) 118 HDL Cholesterol (40 - 59 MG/DL) 48 LDL/HDL Ratio (1.48 - 3.22 Avg Ratio) 2.18 Cholesterol/HDL Ratio (0 RATIO) 3.46 TSH (0.340 - 4.820 mcIU/ML) 0.763 Free T4 (0.89 - 1.76 NG/DL) 1.13 Laboratory Tests 07/28 0325 Coagulation INR (0.8 - 1.2 INR Unit) 0.99 PT Patient/Control Mix (9.3 - 12.9 SECONDS) 11. 4 Laboratory Tests 07/28 0325 Hematology WBC (3.5 - 11.0 K/mm3) 10.0 RBC (4.70 - 6.10 M/mm3) 4.43 L Hgb (10.4 - 14.9 G/DL) 12.9 Hct (31.5 - 44.1 %) 38.8 MCV (84.5 - 98.6 Fl) 87.6 MCH (27.0 - 34.2 pg) 29.1 MCHC (31.5 - 34.0 G/DL) 33.2 RDW (11.5 - 14.5 SD) 14.5 Plt Count (150 - 450 K/mm3) 289.0 MPV (7.0 - 10.5 fL) 9.90 Neut % (Auto) (40 - 76 %) 56.4 Lymph % (Auto) (20.5 - 51.1 %) 33.9 Emmons % (Auto) (1.7 - 9.3 %) 7.8 Eos % (Auto) (0.0 - 6.0 %) 1.6 Baso % (Auto) (0.0 - 2.0 %) 0.3 Neut # (Auto) (1.8 - 7.6 K/mm3) 5.62 Lymph # (Auto) (0.6 - 3.2 K/mm3) 3.4 H Emmons # (Auto) (0.3 - 1.1 K/mm3) 0.8 Eos # (Auto) (0.0 - 0.4 K/mm3) 0.2 Baso # (Auto) (0.0 - 0.1 K/mm3) 0.0 Add Manual Diff (CRITERIA DIFF/SCN) NO Diagnosis, Assessment Plan Free Text DxA P Notes Free Text DxA P Notes: This is a 44 years old female with past medical history of depression presents with persistence dizziness for the last 1 week p atient reported also some numbness on her right side of the face and also some pain in her right ear. Assessment presyncope with standing History of depression under control now Plan MRI brain Meclizine 25 mg 3 times daily dc Debrox Eardrops as not indicated IV fluid No improvement yet: pending MRI head Orthostatic vitals neg yesterday night, will rep eat today neuro consult Full code Quality Medications Current medication review: I attest that the foregoing medication list in [facility] medical record is true, accurate, and complete to the best of my knowled ge. Electronically Signed by Kirill Jarvis MD on 07/19 at 1342 RPT #: [id number] END OF REPORT 2019-07-27 17:50:00-00:00 [facility] ([facility]) Hospitalist History Physical REPORT#:[id number] REPORT STATUS: Signed DATE:07/27/19 TIME:1750 PATIENT: MICHAEL CARVALHO UNIT #: [id number] ROOM/BED: [place] [address] : 75 AGE: 44 SEX: F ATTEND: Milana Galaviz MD ADM AUTHOR: Miguel Angel Galaviz MD * ALL edits or amendments must be made on the [employer]/computer document * History of Present Illness HPI Chief complaint: Persistent dizziness PCP: PCP: No Primary or Family Physician HPI: This is a 44 years old femal e with past medical history of depression presented for evaluation of persistent dizziness for the last 1 week that got worse in the last 2 days she visited an outside ER and she wa s given some medications but without improvement patient also reporte d some numbness on her right face also pain in her right ear, she d enies any history of similar redness before also she reported some palpitation whenever that happen w ith nausea. Never had chest pain no lower extremity pain or swelling no syncope. History Smoking status for patients 13 years old or olde r: Never Smoker Medication/Allergy-Vaccine Hx Home Medications: No Known Home Medications Discontinued Medications DOCUSATE SODIUM (COLACE) 200 MG PO BEDTIME Discontinued reason: DC prior to admit HYDROcodone/APAP (NORCO 5/325) 2 TAB PO Q6H PRN PRN PAIN Discontinued reason: DC prior to admit IBUPROFEN (MOTRIN) 800 MG PO Q8H PRN PRN PAIN Discontinued reason: DC prior to admit Allergies: Coded Allergies: latex (Severe, RASH 11/01/17) povidone-iodine (From BETADINE) (Severe, RASH ) soap (From BETADINE) (Severe, RASH 11/01/17) Review of Systems Free Text ROS Notes: Free Text ROS Notes: 12 point review of system are negative except as in HPI Objective General VS/I O: Patient Weight Weight (lb): Weight (oz): Weight (kg): Physical Exam General appearance: alert, awake, oriented Cardiovascular: normal heart sounds, regular rat e rhythm, no ecotopy Respiratory: aerating well, clear to auscultatio n, symmetric expansion Abdomen: non-tender, normal bowel sounds, soft, no distention Extremities: no calf tenderness, no clubbing, no cyanosis, no edema Neuro/HOT STRIP FINISHER: alert, oriented X 3, normal speech, n o motor deficits Diagnosis, Assessment Plan Free Text DxA P Notes Free Text DxA P Notes: This is a 44 years old female with past medical history of depression presents with persistence dizziness for the last 1 week p atient reported also some numbness on her right side of the face and also some pain in her right ear. Assessment Persistent dizziness/vertigo most likely periphe ral causes but will rule out central cause History of depression under control now Plan MRI brain Meclizine 25 mg 3 times daily Eardrops IV fluid DVT prophylaxis If MRI is negative then patient needs to see ENT as outpatient Full code Quality Medications Current medication review: I attest that the foregoing medication list in [facility] medical record is true, accurate, and complete to the best of my knowled ge. Electronically Signed by Miguel Angel Galaviz MD on at 1755 RPT #: [id number] END OF REPORT 2019-07-27 17:50:00-00:00 [facility] ([facility]) Hospitalist History Physical REPORT#:[id number] REPORT STATUS: Signed DATE:07/27/19 TIME:1750 PATIENT: MICHAEL CARVALHO UNIT #: [id number] ROOM/BED: [place] [address] : 75 AGE: 44 SEX: F ATTEND: Milana Galaviz MD ADM AUTHOR: Miguel Angel Galaviz MD * ALL edits or amendments must be made on the [employer] document * See Addendum History of Present Illness HPI Chief complaint: Persistent dizziness PCP: PCP: No Primary or Family Physician HPI: This is a 44 years old femal e with past medical history of depression presented for evaluation of persistent dizziness for the last 1 week that got worse in the last 2 days she visited an outside ER and she wa s given some medications but without improvement patient also reporte d some numbness on her right face also pain in her right ear, she d enies any history of similar redness before also she reported some palpitation whenever that happen w ith nausea. Never had chest pain no lower extremity pain or swelling no syncope. History Smoking status for patients 13 years old or olde r: Never Smoker Medication/Allergy-Vaccine Hx Home Medications: No Known Home Medications Discontinued Medications DOCUSATE SODIUM (COLACE) 200 MG PO BEDTIME Discontinued reason: DC prior to admit HYDROcodone/APAP (NORCO 5/325) 2 TAB PO Q6H PRN PRN PAIN Discontinued reason: DC prior to admit IBUPROFEN (MOTRIN) 800 MG PO Q8H PRN PRN PAIN Discontinued reason: DC prior to admit Allergies: Coded Allergies: latex (Severe, RASH 11/01/17) povidone-iodine (From BETADINE) (Severe, RASH ) soap (From BETADINE) (Severe, RASH 11/01/17) Review of Systems Free Text ROS Notes: Free Text ROS Notes: 12 point review of system are negative except as in HPI Objective General VS/I O: Patient Weight Weight (lb): Weight (oz): Weight (kg): Physical Exam General appearance: alert, awake, oriented Cardiovascular: normal heart sounds, regular rat e rhythm, no ecotopy Respiratory: aerating well, clear to auscultatio n, symmetric expansion Abdomen: non-tender, normal bowel sounds, soft, no distention Extremities: no calf tenderness, no clubbing, no cyanosis, no edema Neuro/HOT STRIP FINISHER: alert, oriented X 3, normal speech, n o motor deficits Diagnosis, Assessment Plan Free Text DxA P Notes Free Text DxA P Notes: This is a 44 years old female with past medical history of depression presents with persistence dizziness for the last 1 week p atient reported also some numbness on her right side of the face and also some pain in her right ear. Assessment Persistent dizziness/vertigo most likely periphe ral causes but will rule out central cause History of depression under control now Plan MRI brain Meclizine 25 mg 3 times daily Eardrops IV fluid DVT prophylaxis If MRI is negative then patient needs to see ENT as outpatient Full code Quality Medications Current medication review: I attest that the foregoing medication list in [facility] medical record is true, accurate, and complete to the best of my knowled ge. Electronically Signed by Miguel Angel Galaviz MD on at 1755 Addendum 1: 07/27/19 1801 by Miguel Angel Galaviz MD Basic blood work, chest x-ray, CT scan of the he ad reviewed from outside emergency room and are normal Electronically Signed by Miguel Angel Galaviz MD on at 1802 [facility] #: [id number] END OF REPORT 2015-09-15 12:32:57-00:00 MR RIGHT HIP ARTHROGRAM OPID [facility] HISTORY: Right hip pain, mus alma strain, acetabular labral tear, 40-year-old female reports right hip pain and mechanical symptoms medially for approximately 3 weeks, history of labral repair in 2012 and a February 2015 COMPARISON: MR right hip arthrogram dated 2013 FINDINGS: Three soft tissue anchors in the acetabulum at 1:00 and 2:00 positions related to prior labral repair. There is abnormal degenerati ve or postoperative signal both within and undercutting the anterior/superior labrum with irregular labral contour, related to prior surgical repair of labral tear (coronal s eries 10 images 16 and 17 and axis series 8 imag es 15-17). The small focus of intra-art icular contrast undercutting the base of the labrum in this area on the prior exam is no longer seen compatible with interval repair without evidence of recurrent tear. No paralabral cyst. Hip joint cartilage is prese rved. No chondromalacia is identified. No subchondral arthropathic marrow edema or cystic change. No soft tissue mass or fluid collection is seen. Bone marrow signal is normal. The gluteus, iliopsoas, hamstring tendons appear normal. IMPRESSION: 1. Mildly degraded postopera tive appearance to the anterior superior acetabular labrum with changes of prior labral repair. 2. No recurrent tear is evident. 3. Hip joint cartilage is preserved. Thank you for referring your patient to [facility] and [facility]. SL: 2015-09-15 10:27:52-00:00 PROCEDURE: Hip arthrogram Unilateral ( Dx) [facility] REASON FOR EXAM: See Clinic Indication CLINICAL INDICATION: fluoro time: 0:27min, S76.011A Strain of muscle, fascia and tendon of right hip, initial encounter, M25.551 Pain in right hip FLUORO TIME: 27 seconds CONSENT: The patient denied any drug all ergies. Informed consent was obtained. Technique: The right hip was prepped an d draped in a sterile fashion. 5 cc of 1% lidocaine was used to achieve local anesthesia. Under fluoroscopic guidance, a 22-gauge spinal needle was inserted into right hip joint. Approximately 12 cc of a 15 cc solution containing 1 cc of betamethasone (80 mg/cc), 2 cc 1% lidocaine, 4 cc 0.5% bupivacaine, 4 cc of Omnipaque, 4 cc saline, and 0.1 cc Omniscan was administered. The patient tolerated the procedure well without complication. SL: 17
[2023-05-14 14:48] LABS: Specific Gravity < 1.005 (1.005-1.030); Urine Bilirubin NEGATIVE (Negative); Urine Blood Negative (Negative); Urine Clarity Clear (Clear); Urine Color Dark-Yellow (Yellow); Urine Glucose NEGATIVE (Negative); Urine Protein NEGATIVE (Negative); Urine Urobilinogen Normal (Normal)
[2023-05-14 14:51] LABS: Specific Gravity 1.006 (1.005-1.030)
[2023-05-14 15:14] LABS: Absolute Lymphocytes (CBC) 1.9 K/uL (0.7-4.9); Hematocrit 39.9 % (36.0-45.0); Lymphocytes % 27.1 % (15.3-44.8); MCV 88.2 fL (80-100); MPV 7.7 fL (7.6-11.3); RBC Red Blood Cell Count 4.52 M/uL (3.86-4.86)
--- NOTE | 2023-05-14 15:22 | RAD REPORT ---
EXAM DESCRIPTION: CT - Abdomen Pelvis Wo Contrast - 05/14/2023 2:55 pm CLINICAL HISTORY: right flank pain, hx of hysterectomy COMPARISON: Abdomen Pelvis W Contrast dated 05/06/2017; CT ABD PELVIS W CONTRAST dated 06/18/2013 TECHNIQUE: Thin cut axial CT imaging of the abdomen and pelvis was performed without IV contrast. Mu ltiplanar reformats were generated and reviewed. All CT scans are performed using dose optimization technique as appropriate and may include automated exposure control or mA/KV adjustment according to patient size. FINDINGS: No suspicious findings in the lung bases. The liver, spleen, and pancreas show no suspicious findings. Gallbladder and biliary tree are also wi thout suspicious finding. Symmetric renal contour, without suspicious parenchymal findings within limits of noncontrast techniq ue. No evidence of radiopaque calculi or hydroureteronephrosis. No dilated bowel loops or bowel wall thickening. No free air, free fluid or inflammatory stranding. N o hernia, mass or bulky lymphadenopathy. The urinary bladder is without significant finding. Small cy sts of the adnexae bilaterally, likely physiologic. No suspicious bony findings. IMPRESSION: No acute intra-abdominal process.
[2023-05-14 15:34] LABS: Albumin 3.7 g/dL (3.4-5.0); Bilirubin Total 0.5 mg/dL (0.2-1.0); Protein, Total 7.4 g/dL (6.4-8.2)
[2023-05-14] MEDS ORDERED: ACETAMINOPHEN 500 MG TAB ONE (15:36)
[2023-05-14] MEDS ORDERED: KETOROLAC 30 MG/ML INJ ONE (15:36)
--- NOTE | 2023-05-14 16:34 | ER ---
Nurse's Notes [facility] Name: Jody Alarcon Age: 48 yrs Sex: Female : 1975 Arrival Date: 05/14/2023 Time: 14:04 Bed 16 Private MD: Diagnosis: Low back pain Presentation: 05/14 14:24 Chief complaint: Patient states: R FLANK PAIN AND DYSURIA SINCE SATURDAY. Coronavirus ss screen: At this time, the client does not indicate any symptoms associated with coronavirus-19. Ebola Screen: No symptoms or risks identified at this time. Initial Sepsis Screen: Does the patient meet any 2 criteria? No. Patient's initial sepsis screen is negative. Does the patient have a suspected source of infection? No. Patient's initial sepsis screen is negative. Risk Assessment: Do you want to hurt yourself or someone else? Patient reports no desire to harm self or others. Note PT ON CIPRO FOR UTI FROM PCP. Onset of symptoms is unknown. 14:24 Method Of Arrival: Wheelchair 14:24 Acuity: WILBERTO 3 ss Triage Assessment: 14:25 General: Appears uncomfortable, Behavior is cooperative, appropriate for age, anxious. ss Pain: Complains of pain in right flank. EENT: No deficits noted. Neuro: No deficits noted. Cardiovascular: No deficits noted. Respiratory: No deficits noted. GI: No signs and/or symptoms were reported involving the gastrointestinal system. : Reports burning with urination, pain in right flank(s). Historical: - Allergies: 14:25 Betadine; ss 14:25 Latex, Natural Rubber; ss 14:25 Bactrim; ss - Home Meds: 14:25 Celexa 20 mg Oral tab 1 tab once daily [Active]; ss - PMHx: 14:25 Depression; shingles; ss - Immunization history:: Adult Immunizations up to date. - Social history:: Smoking status: Patient denies any tobacco usage or history of. Screenin:45 [facility] ED Fall Risk Assessment (Adult) Score/Fall Risk Level 0 - 2 = Low Risk. Abuse eh3 screen: Denies threats or abuse. Denies injuries from another. Nutritional screening: No deficits noted. Tuberculosis screening: No symptoms or risk factors identified. Assessment: 14:45 General: Appears in no apparent distress. uncomfortable, Behavior is calm, cooperative, eh3 appropriate for age. Pain: Complains of pain in back and right flank. Neuro: Zepeda Agitation-Sedation Scale (RASS): 0 - Alert and Calm Level of Consciousness is awake, alert, obeys commands, Oriented to person, place, time, situation. Cardiovascular: Capillary refill < 3 seconds Patient's skin is warm and dry. Respiratory: Airway is patent Respiratory effort is even, unlabored, Respiratory pattern is regular, symmetrical. GI: Abdomen is round non-distended. Derm: Skin is healthy with good turgor, Skin is pink, warm \T\ dry. Musculoskeletal: Circulation, motion, and sensation intact. 15:45 Reassessment: Patient appears in no apparent distress at this time. Patient and/or eh3 family updated on plan of care and expected duration. Pain level reassessed. Patient is alert, oriented x 3, equal unlabored respirations, skin warm/dry/pink. 16:45 Reassessment: Patient appears in no apparent distress at this time. Patient and/or eh3 family updated on plan of care and expected duration. Pain level reassessed. Patient is alert, oriented x 3, equal unlabored respirations, skin warm/dry/pink. Vital Signs: 14:24 BP 141 / 95; Pulse 90; Resp 16; Temp 97.4; Pulse Ox 97% ; Weight 71.21 kg; Height 5 ft. ss 4 in. ; 15:15 BP 141 / 82; Pulse 81; Resp 16; Pulse Ox 99% on R/A; eh3 16:15 BP 155 / 97; Pulse 88; Resp 16; Pulse Ox 99% on R/A; eh3 14:24 Body Mass Index 26.95 (71.21 kg, 162.56 cm) ED Course: 14:16 Patient arrived in ED. im 14:25 Triage completed. ss 14:25 Arm band placed on. ss 14:27 Cornell Lawrence MD is Attending Physician. bs3 14:45 Patient has correct armband on for positive identification. Bed in low position. Call eh3 light in reach. Side rails up X2. Adult w/ patient. Pulse ox on. NIBP on. Door closed. Noise minimized. Lights dimmed. Warm blanket given. 14:57 CT Abd/Pelvis - Without Contrast In Process Unspecified. EDMS 15:25 Daniela Brasher, RN is Primary Nurse. 3 16:32 No provider procedures requiring assistance completed. eh3 17:00 IV discontinued, intact, bleeding controlled, No redness/swelling at site. Pressure eh3 dressing applied. Administered Medications: 15:30 Drug: Ketorolac IM 15 mg Route: IM; Site: left deltoid; eh3 16:45 Follow up: Response: No adverse reaction eh3 15:30 Drug: Acetaminophen PO 1000 mg Route: PO; eh3 16:45 Follow up: Response: No adverse reaction 3 16:00 Drug: Cyclobenzaprine PO 10 mg Route: PO; eh3 16:45 Follow up: Response: No adverse reaction 3 Medication: 16:32 VIS not applicable for this client. 3 Outcome: 16:33 Discharge ordered by . bs3 17:00 Discharged to home via wheelchair, with significant other. eh3 17:00 Condition: stable 17:00 Discharge instructions given to patient, Instructed on discharge instructions, follow up and referral plans. medication usage, Demonstrated understanding of instructions, follow-up care, medications, Prescriptions given X 3. 17:02 Patient left the ED. 3 Signatures: Dispatcher [employer] EDMS Ambar Adkins RN RN ss Hall, Erin, RN RN 3 Cornell Lawrence MD MD bs3 Florencia Ulrich [email or web address] Swetha Del Rosario Corrections: (The following items were deleted from the chart) 14:46 14:46 Radiology exam delayed due to test not completed at this time. [id number] [id number] 21:34 21:34 Reassessment: Patient appears in no apparent distress at this time. Patient eh3 and/or family updated on plan of care and expected duration. Pain level reassessed. Patient is alert, oriented x 3, equal unlabored respirations, skin warm/dry/pink. eh3
--- NOTE | 2023-05-14 16:34 | EDPHYS ---
Physician Documentation [facility] Name: Jody Alarcon Age: 48 yrs Sex: Female : 1975 Arrival Date: 05/14/2023 Time: 14:04 Bed 16 Private MD: ED Physician Cornell Lawrence HPI: 05/14 15:14 This 48 yrs old Female presents to ER via Wheelchair with complaints of Low bs3 Back Pain. 15:14 48-year-old female history of depression, shingles recently treated with antibiotics bs3 for a possible urinary tract infection switch from box yesterday because her symptoms were not getting better complaint of bilateral back pain worse with changes in position worse when sitting or standing no associated numbness tingling or weakness in her extremities it does not radiate down her legs she denies any history of cancer any night sweats weight loss any IV drug use any fevers or chills she took Advil before arrival without significant relief. Historical: - Allergies: 14:25 Betadine; ss 14:25 Latex, Natural Rubber; ss 14:25 Bactrim; ss - Home Meds: 14:25 Celexa 20 mg Oral tab 1 tab once daily [Active]; ss - PMHx: 14:25 Depression; shingles; ss - Immunization history:: Adult Immunizations up to date. - Social history:: Smoking status: Patient denies any tobacco usage or history of. ROS: 15:14 Constitutional: Negative for fever, chills bs3 15:14 All other systems are negative. Exam: 15:14 Constitutional: This is a well developed, well nourished patient who is awake, alert, bs3 and in no acute distress. Head/Face: Normocephalic, atraumatic. Eyes: Pupils equal round and reactive to light, extra-ocular motions intact. Lids and lashes normal. ENT: mmm, no posterior phyarngeal erythema Neck: Trachea midline, no thyromegaly, no neck stiffness Chest/axilla: Normal chest wall appearance and motion. Nontender with no deformity. No lesions are appreciated. Cardiovascular: Regular rate and rhythm with a normal S1 and S2. symmetric pulses in upper extremities Respiratory: Lungs have equal breath sounds bilaterally, clear to auscultation, no respiratory distress Abdomen/GI: Soft, non-tender, no rebound or guarding Back: No CVA tenderness she is able to get up but has pain with standing she has no pain to percussion of her spine no rash mild paraspinal tenderness in the lumbar region MS/ Extremity: Pulses equal, no cyanosis. Neurovascular intact. Full, normal range of motion. Neuro: Awake and alert, GCS 15, oriented to person, place, time, and situation. Cranial nerves II-XII grossly intact. Motor strength 5/5 in all extremities. Sensory grossly intact. Psych: Awake, alert, with orientation to person, place and time. Behavior, mood, and affect are within normal limits. Vital Signs: 14:24 BP 141 / 95; Pulse 90; Resp 16; Temp 97.4; Pulse Ox 97% ; Weight 71.21 kg; Height 5 ft. ss 4 in. ; 15:15 BP 141 / 82; Pulse 81; Resp 16; Pulse Ox 99% on R/A; eh3 16:15 BP 155 / 97; Pulse 88; Resp 16; Pulse Ox 99% on R/A; eh3 14:24 Body Mass Index 26.95 (71.21 kg, 162.56 cm) ss MDM: 14:27 Patient medically screened. bs3 15:14 Data reviewed: vital signs, nurses notes. ED course: Will evaluate for kidney stone we bs3 will check labs will evaluate for urinary tract infection and reassess. 16:33 ED course: Work-up nondiagnostic discussed with patient she has no red flags advised bs3 outpatient follow-up. 05/14 14:27 Order name: Urinalysis w/ reflexes; Complete Time: 15:03 05/14 14:27 Order name: Test, Urine; Complete Time: 15:03 05/14 14:40 Order name: CBC with Diff; Complete Time: 15:27 [facility] 05/14 14:40 Order name: Comprehensive Metabolic Panel; Complete Time: 15:49 [facility] 05/14 14:40 Order name: CT Abd/Pelvis - Without Contrast; Complete Time: 15:27 bs3 Administered Medications: 15:30 Drug: Ketorolac IM 15 mg Route: IM; Site: left deltoid; 3 16:45 Follow up: Response: No adverse reaction 3 15:30 Drug: Acetaminophen PO 1000 mg Route: PO; 3 16:45 Follow up: Response: No adverse reaction eh3 16:00 Drug: Cyclobenzaprine PO 10 mg Route: PO; eh3 16:45 Follow up: Response: No adverse reaction eh3 Disposition Summary: 05/14/23 16:33 Discharge Ordered Location: Home bs3 Problem: new bs3 Symptoms: have improved bs3 Condition: Stable bs3 Diagnosis - Low back pain bs3 Followup: bs3 - With: Private Physician - When: 5 - 6 days - Reason: Re-evaluation by your physician Discharge Instructions: - Discharge Summary Sheet bs3 - Acute Back Pain, Adult bs3 - Musculoskeletal Pain bs3 Forms: - Medication Reconciliation Form bs3 - Thank You Letter bs3 - [email or web address] bs3 Prescriptions: - dexamethasone 6 mg Oral tablet - take 2 tablet by ORAL route 2 times per day for 1 day; 2 tablet; Refills: 0, bs3 Product Selection Permitted - meloxicam 15 mg Oral tablet - take 1 tablet by ORAL route daily for 14 days; 14 tablet; Refills: 0, Product bs3 Selection Permitted - Cyclobenzaprine 10 mg Oral Tablet - take 1 tablet by ORAL route every 8 hours As needed; 30 tablet; Refills: 0, bs3 Product Selection Permitted Signatures: Dispatcher [employer] Ambar Lynne RN RN Daniela Brasher RN RN [facility] Cornell Lawrence MD MD 3
[2023-05-14 17:08] VITALS: TEMP 97.4
[2023-05-14 17:09] VITALS: O2SAT 99
[2023-05-14 17:11] VITALS: BP 155/97
== END 2023-05-14 17:02 | disposition home or self-care (01) ==
LOC: ER 14:04
DX: M54.50 Low back pain, unspecified (principal); F32.A Depression, unspecified; Z88.1 Allergy status to other antibiotic agents; Z88.3 Allergy status to other anti-infective agents; Z91.040 Latex allergy status; Z91.048 Other nonmedicinal substance allergy status
CPT/HCPCS: 36415; 74176; 80053; 81003; 81025; 85025